=== PATIENT | male | born 1960 | race Caucasian/White ===

== ENCOUNTER → 2019-12-11 09:13 | Outpatient (CLI) | payer MEDICAID, SELFPAY | PROVIDERS: Visit Provider Emergency Medicine | DX: J44.9 Chronic obstructive pulmonary disease, unspecified (principal) | CPT/HCPCS: 87070; 87116; 87186; 87205; 87206 ==

== ENCOUNTER → 2019-12-12 09:07 | Outpatient (CLI) | payer MEDICAID, SELFPAY | PROVIDERS: Visit Provider Emergency Medicine | DX: J44.9 Chronic obstructive pulmonary disease, unspecified (principal) | CPT/HCPCS: 87070; 87116; 87186; 87205; 87206 ==

== ENCOUNTER → 2019-12-13 10:44 | Outpatient (CLI) | payer MEDICAID, SELFPAY | PROVIDERS: Visit Provider Emergency Medicine | DX: J44.9 Chronic obstructive pulmonary disease, unspecified (principal) | CPT/HCPCS: 87070; 87116; 87186; 87205; 87206 ==

== ENCOUNTER 2019-12-29 08:13 | Inpatient (IN) ==
[2019-12-29 08:39] LABS: ABG Base Excess 3.5 mmol/L (-2.4-2.3); ABG HCO3 27.8 mmhg (22.0-26.0); ABG Oxygen Saturation 92 % (90-100); ABG PCO2 42.6 mmhg (35.0-45.0); ABG PH 7.43 mmol/L (7.35-7.45); ABG PO2 60.1 mmhg (80-100); ABG TCO2 29.1 mmhg (23-27)
[2019-12-29 08:41] LABS: Allen's Test ACCEPTABLE; Oxygen 21 %
--- NOTE | 2019-12-29 08:42 | Emergency Department Note ---
ED Disposition Clinical Impression: Acute exacerbation of chronic obstructive airways disease, Severe sepsis, Respiratory distress, Hypoxemia, Acute kidney injury (nontraumatic) Altered mental status Qualifiers: Altered mental status type: unspecified Qualified Code(s): R41.82 - Altered mental status, unspecified Disposition: Admitted as Observation Condition on Discharge: Fair Referrals: Provider,Referral, MD [Primary Care Provider] - Time of Disposition: 11:23 - Critical Care Critical Care Time: Yes (30 min) Attestation: On 12/29/19, the high probability of a clinically significant, sudden or life threatening deterioration of the following system(s) required my full and direct attention, intervention and personal management. The time I documented below is in addition to time spent performing reported procedures but includes the following listed in this critical care notation. Bedside assessment, management, reevaluation, consult and admission. Vital system(s) involved:: Circulatory Failure, Respiratory Failure, Renal Failure, Shock (Septic) My critical care processes included: Assessment & monitoring of V/S, Initial and Re-exams, Data Review/Interpretation, Coordinating Care, Medication Orders and management, Documentation Medical Decision Making - Camacho Inquiry Pt receiving controlled substance: No Vital Signs: 12/29/19 08:28 12/29/19 08:37 12/29/19 08:47 Temperature 100 F H Temperature Source Rectal Pulse Rate [Left Radial] 104 H 104 H Respiratory Rate 42 H Blood Pressure [Right Arm] 153/97 H 103/42 L Blood Pressure Mean [Right Arm] 115 62 Blood Pressure Source [Right Arm] Blood Pressure Position [Right Arm] Sitting 02 Sat by Pulse Oximetry 89 L 92 L 92 L Oxygen Delivery Method Room Air Nasal Cannula Oxygen Flow Rate (LPM) 2 12/29/19 09:57 12/29/19 10:24 12/29/19 10:27 Temperature Temperature Source Pulse Rate [Left Radial] 91 H 85 84 Respiratory Rate Blood Pressure [Right Arm] 107/66 L 79/62 L 93/59 L Blood Pressure Mean [Right Arm] 79 67 70 Blood Pressure Source [Right Arm] Automatic Cuff Blood Pressure Position [Right Arm] Sitting Sitting 02 Sat by Pulse Oximetry 98 97 Oxygen Delivery Method Oxygen Flow Rate (LPM) 12/29/19 10:37 Temperature Temperature Source Pulse Rate [Left Radial] 86 Respiratory Rate Blood Pressure [Right Arm] 156/61 H Blood Pressure Mean [Right Arm] 92 Blood Pressure Source [Right Arm] Blood Pressure Position [Right Arm] 02 Sat by Pulse Oximetry 98 Oxygen Delivery Method Oxygen Flow Rate (LPM) - Lab Data Lab Results 12/29/19 08:21: WBC 10.9 H, RBC 5.03, Hgb 13.9 L, Hct 44.5, MCV 88.5, MCH 27.6, MCHC 31.1 L, RDW 16.7, Plt Count 192, MPV 10.0, Neut % (Auto) 83.3 H, Lymph % (Auto) 7.4 L, [place] % (Auto) 8.4, Eos % (Auto) 0.6, Baso % (Auto) 0.4, Neut # (Auto) 9.1 H, Lymph # (Auto) 0.8, [place] # (Auto) 0.9, Eos # (Auto) 0.1, Baso # (Auto) 0.0 12/29/19 08:21: B-Natriuretic Peptide 76 12/29/19 08:21: Lactate 1.6 12/29/19 08:21: Influenza Type A Ag Negative, Influenza Type B Ag Negative 12/29/19 08:36: Specimen Source Left radial, O2 % 21, ABG pH 7.43, ABG pCO2 42.6, ABG pO2 60.1 L, ABG HCO3 27.8 H, ABG Total CO2 29.1 H, ABG O2 Saturation 92, ABG Base Excess 3.5 H, Prasanth Test Acceptable 12/29/19 09:55: Sodium 139, Potassium 5.0, Chloride 101, Carbon Dioxide 31, Anion Gap 12.0, BUN 21 H, Creatinine 1.06, Estimated Creat Clear 89, Estimated GFR 72, Est GFR ( Amer) 87, Glucose 100, Calcium 9.4, Total Bilirubin 0.4, AST 19, ALT 9 L, Alkaline Phosphatase 70, Troponin I < 0.02, Total Protein 7.0, Albumin 2.7 L, Globulin 4.3 H, Albumin/Globulin Ratio 0.6 L, Total Valproic Acid 82.4 Result diagrams: 12/29/19 08:21 12/29/19 09:55 Orders (Tests/Meds): ED MEDICATIONS Generic Name Dose Route Start Last Admin Trade Name Freq PRN Reason Stop Dose Admin Sodium Chloride 1,000 mls @ 999 mls/hr 12/29/19 10:30 12/29/19 10:25 Sod Chlor 0.9% 1000ml Bag IV 12/29/19 11:30 999 mls/hr .Q1H1M SONYA Administration Azithromycin 500 mg/ Sodium 250 mls @ 250 mls/hr 12/29/19 11:30 Chloride IV 01/12/20 11:29 Q24H SONYA Protocol Sodium Chloride 3 ml 12/29/19 11:17 Sodium Chloride 3% 15ml Critical access hospital 01/28/20 11:16 ONCE PRN INDUCE SPUTUM COLLECTION Discontinued Medications Generic Name Dose Route Start Last Admin Trade Name Freq PRN Reason Stop Dose Admin Acetaminophen 650 mg 12/29/19 08:42 12/29/19 08:50 Acetaminophen 650mg Suppository RC 12/29/19 08:43 650 mg ONCE ONE Administration Albuterol Sulfate 10 mg 12/29/19 09:19 Albuterol 0.083% 2.5mg/3ml Critical access hospital 12/29/19 09:20 ONCE ONE Albuterol/Ipratropium 6 ml 12/29/19 08:40 12/29/19 08:40 Duoneb 3ml Critical access hospital 12/29/19 08:41 6 ml ONCE ONE Administration Ceftriaxone Sodium 1 gm/ 50 mls @ 100 mls/hr 12/29/19 08:40 12/29/19 08:50 Sodium Chloride IV 12/29/19 09:09 100 mls/hr ONCE STA Administration Protocol Methylprednisolone Sodium Succinate 125 mg 12/29/19 08:40 12/29/19 08:50 Solu-Medrol 125mg/2ml Vial IV 12/29/19 08:41 125 mg ONCE ONE Administration ORDERS Category Date Time Status CT Chest w/PE protocol [CT angio chest] Stat Cat Scan 12/29/19 10:52 Ordered Troponin I Q3H Lab 12/29/19 11:45 Ordered Troponin I Q3H Lab 12/29/19 14:45 Ordered Blood Culture Stat Micro 12/29/19 08:36 Ordered Sputum Culture & Gram Stain Stat Micro 12/29/19 11:17 Ordered - Radiology Data #1 Image(s): Chest Image Reviewed: Yes I reviewed the patient's radiology results XR CHEST AP from 11/10/2019 FINDINGS: The cardiomediastinal silhouette and pulmonary vascularity are within normal limits. COPD. There are 2 noncalcified nodular opacities in the right mid and lower lung zone which are not readily apparent on the previous exam. No lobar consolidation or collapse. Right shoulder prosthesis IMPRESSION: Two 5 mm nodular opacities right lower lung zone not readily apparent previously. No metastatic foci or granulomas is a consideration. Consider chest CT for further evaluation Dictated by: Prasanth Johnston MD 12/29/2019 09:30 Electronically signed by Prasanth Johnston MD in [place] 12/29/2019 09:30 - CT Data CT Scan: Head Time Received: 10:[address] Reviewed: Yes: I have reviewed the patient's CT results Findings Narrative: FINDINGS: No midline shift, mass effect, intracranial hemorrhage, hydrocephalus, or extra-axial fluid collection is evident. There is generalized atrophy with hypoattenuation of the periventricular white matter consistent with microangiopathic changes.. 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 The calvarium has an unremarkable appearance. No mastoid effusion. There is near complete opacification of the left maxillary sinus with lobular soft tissue density along the inferior aspect of the right maxillary sinus consistent with retention cyst. There is rightward nasal septal deviation with a septal spur projecting toward the right. IMPRESSION: 1. Atrophy with chronic ischemic changes. 2. Sinus disease. 3. No acute intracranial findings - ECG Data Tracing #1 EKG shows normal sinus rhythm with a heart rate of 104 bpm. Plan sinus tachycardia, normal P waves, normal OR interval, nonspecific ST-T changes. - Physician Consults Physician Consulted: Dr. Schmitt Time: 11:20 Reason -: Admission Comment/Response: With Dr. Schmitt, the patient's primary care provider regarding the patient and plan to get the patient admitted to the floor. - Reevaluation(s) Time: 10:30 Reevaluation #1: Patient's oxygen saturation has been improving with the Ventimask at 40%. He is satting at about 97 to 98%. He seems to be feeling better but still sounds very noisy on his cough. Has bilateral bronchospasm. Plan to discuss the case with the hospitalist and admit the patient for COPD with severe sepsis and acute dyspnea. Resp/SOB HPI - General Chief Complaint: Shortness of Breath/Dyspnea Stated Complaint: SOA Time Seen by Provider: 12/29/19 08:30 Mode of Arrival: EMS Limitations: No Limitations Description of Symptoms (Recalled from ER Triage Doc. by RN): TO ED PER EMS PT RESIDENT OF [facility] SENT FOR EVAL DUE TO RESP DISTRESS STARTING THIS AM. PT C/O SOB DENIES ANY OTHER C/O PT GIVEN 1 DUONEB [place] [employer] - History of Present Illness 59-year-old male was sent in from the residential for having shortness of b reath with cough and congestion. Patient is short of breath and is not able to verbalize any complaint. He is lethargic and keeps his eyes closed. He verbalizes only when to command. Does not verbalize much of his complaint. He says he is okay but he is acutely tachypneic. Does not verbalize if he is hurting anywhere. Sounds very noisy when he is breathing. He is breathing at about 26 to 30/min. MD Complaint: shortness of breath, cough - Related Data Home oxygen amount: none Home Medications Medication Instructions Recorded Confirmed Acetaminophen 500 mg PO Q6 PRN 11/10/19 12/29/19 Atorvastatin Calcium [Atorvastatin 40 mg PO HS 11/10/19 12/29/19 40mg Tab] Budesonide/Formoterol Fumarate 2 puffs IH BID 11/10/19 12/29/19 [Symbicort 160-4.5 Mcg Inhaler] Cholecalciferol (Vitamin D3) 1,000 unit PO DAILY 11/10/19 12/29/19 [Vitamin D3 1,000 Unit Cap] Divalproex Sodium [Depakote] 500 mg PO BID 11/10/19 12/29/19 Gabapentin [Gabapentin 100mg Cap] 100 mg PO TID 11/10/19 12/29/19 Loratadine [Claritin] 10 mg PO DAILY 11/10/19 12/29/19 Melatonin [Melatin] 6 mg PO HS 11/10/19 12/29/19 Propranolol HCl [Inderal 20mg 20 mg PO TID 11/10/19 12/29/19 Tablet] Quetiapine Fumarate [Seroquel 50 50 mg PO HS 11/10/19 12/29/19 mg Tablets] Sertraline HCl [Zoloft] 100 mg PO DAILY 11/10/19 12/29/19 buPROPion HCl [Bupropion Xl] 150 mg PO DAILY 11/10/19 12/29/19 raNITIdine HCl [Ranitidine HCl] 300 mg PO BID 11/10/19 12/29/19 Allergies Allergy/AdvReac Type Severity Reaction Status Date / Time bee pollen Allergy Verified 11/10/19 00:19 [facility] History - Hepatitis A Screen Drug use history?: No High risk sexual behaviors?: No History of sexually transmitted infection?: No Currently employed?: No Childcare worker?: No Do you have indoor plumbing?: Yes Do you have electricity?: Yes Attestation statement:: This patient has been screened for Hepatitis A risk factors. Medical History: Denies:: Diabetes Mellitus Type 1, Diabetes Mellitus Type 2 Fractures: Yes (HUMERUS, L RIBS, L RADIUS) - Social History Smoking Status: Current every day smoker Tobacco Type: cigarettes # Packs/Day (cigarettes): 0 Alcohol Intake: never Occupational Status: other Housing: assisted living facility Household Members: other ROS Obtained: Yes other (Does not verbalize muchcomplain.Unable to get a proper ROS d/t clinic state) Physical Exam - General General appearance: other (He is lethargic and keeps his eyes closed. He verbalizes only when to command. Does not verbalize much of his complaint. He says he is okay but he is acutely tachypneic. Does not verbalize if he is hurting anywhere.) - Head Head exam: atraumatic, normocephalic, normal inspection - Eye Eye exam: Present: normal appearance, PERRL, EOMI - ENT ENT exam: Present: normal exam, normal oropharynx, mucous membranes moist, normal external ear exam - Neck Neck exam: Present: normal inspection, full ROM - Chest Chest inspection: Present: normal inspection, symmetric chest wall rise - Respiratory Respiratory exam: Present: respiratory distress, wheezes, accessory muscle use, prolonged expiratory phase, other (coarse noisy breath sounds bilaterally. Bilateral bronchospasm.) - Cardiovascular Cardiovascular exam: Present: normal rhythm, tachycardia. Absent: JVD - Abdominal Exam Abdominal exam: Present: soft, normal bowel sounds. Absent: distention, tenderness, guarding - Extremities Exam Extremities exam: Present: normal inspection, full ROM, other (pale peripheral extremities.) - Back Exam Back exam: Present: normal inspection. Absent: tenderness - Neurological Exam Neurological exam: Present: alert, oriented X3, CN II-XII intact - Psychiatric Psychiatric exam: Present: normal affect, normal mood - Skin Skin exam: Present: warm, dry, intact, normal color
[2019-12-29 09:22] LABS: Basophils % 0.4 % (0.1-2.0); Eosinophils # 0.1 K/mm3 (0.0-0.4); Eosinophils % 0.6 % (0.1-12.0); Hematocrit 44.5 % (42.0-52.0); Hemoglobin 13.9 g/dL (14.1-18.0); Lymphocytes # 0.8 K/mm3 (0.7-4.5); Lymphocytes % 7.4 % (10-50); Mean Corpuscular HGB Conc 31.1 g/dL (31.8-35.4); Mean Corpuscular Volume 88.5 fl (80-94); Monocytes # 0.9 K/mm3 (0.1-1.0); Monocytes % 8.4 % (1.7-9.3); Neutrophils # 9.1 K/mm3 (1.8-7.8); Neutrophils % 83.3 % (37.0-80.0); Platelet Count 192 K/mm3 (142-424); Red Blood Count 5.03 M/mm3 (4.60-6.20); Red Cell Distribution Width 16.7 % (11.5-17.5); White Blood Count 10.9 K/mm3 (4.8-10.8)
[2019-12-29 10:22] LABS: Alanine Aminotransferase 9 U/L (12-78); Albumin Level 2.7 gm/dL (3.4-5.0); Albumin/Globulin Ratio 0.6 (1.1-1.8); Alkaline Phosphatase 70 U/L (46-116); Aspartate Amino Transferase 19 U/L (15-37); Bilirubin,Total 0.4 mg/dL (0.2-1.0); Blood Urea Nitrogen 21 mg/dL (7-18); Calcium 9.4 mg/dL (8.5-10.1); Carbon Dioxide 31 mmol/L (21.0-32.0); Chloride 101 mmol/L (98-107); Globulin 4.3 gm/dl (1.3-3.2); Glucose 100 mg/dL (74-106); Sodium 139 mmol/L (136-145)
--- NOTE | 2019-12-29 13:38 | Pharmacy Consult Notes ---
[facility] Pharmacy VTE Monitoring - Patient Demographics Admission date: 12/29/19 Report Date: 12/29/19 Time: 13:37 Allergies/Adverse Reactions: Patient Allergies bee pollen Allergy (Verified 11/10/19 00:19) Height: 1.83 m Weight: 75.296 kg Patient Problems: Current Active Problems Acute exacerbation of chronic obstructive airways disease (Acute) Severe sepsis (Acute) Respiratory distress (Acute) Hypoxemia (Acute) Altered mental status (Acute) Acute kidney injury (nontraumatic) (Acute) - VTE Risk Labs: VTE Related Lab Results Hgb 13.9 g/dL (14.1-18.0) L 12/29/19 08:21 Hct 44.5 % (42.0-52.0) 12/29/19 08:21 Plt Count 192 K/mm3 (142-424) 12/29/19 08:21 BUN 21 mg/dL (7-18) H 12/29/19 09:55 Creatinine 1.06 mg/dL (0.70-1.30) 12/29/19 09:55 Estimated Creat Clear 89 mL/min (50-200) 12/29/19 09:55 Was VTE Risk Assessment Performed: Yes VTE Score: 5 VTE Risk Level: Low Risk - Prophylaxis VTE Prophylaxis Ordered?: Yes Types of VTE Prophylaxis: TEDS Knee High Location of Applied Device: Bilateral Lower Extremeties - VTE Diagnosis Confirmed Treatment or plan recommended: Continue Current Treatment
--- NOTE | 2019-12-29 20:05 | History & Physical Report ---
*Admission Date: 12/29/19 *Chief complaint: sob *History of present illness: this pt was sent from [facility] for eval of change in mental status and sob - pt was seen in the ed--year-old male was sent in from the [place] [facility] for having shortness of breath with cough and congestion. Patient is short of breath and is not able to verbalize any complaint. He is lethargic and keeps his eyes closed. He verbalizes only when to command. Does not verbalize much of his complaint. He says he is okay but he is acutely tachypneic. Does not verbalize if he is hurting anywhere. Sounds very noisy when he is breathing. He is breathing at about 26 to 30/min. MD Complaint: shortness of breath, cough pt had hcap on ct and was admitted [facility] History I have reviewed the patient's past medical history: Yes Medical History: Denies:: Diabetes Mellitus Type 1, Diabetes Mellitus Type 2 *Have you ever received a pneumonia vaccine?: Yes *Have you received a flu vaccine this season?: Yes Laterality Cases: Left: Total Hip Replacement Fractures: Yes (HUMERUS, L RIBS, L RADIUS) - *Social History Smoking Status: Current every day smoker Tobacco Type: cigarettes # Packs/Day (cigarettes): 1 Alcohol Intake: never *Occupational Status:: disabled Housing: [facility] Household Members: other *Travel in the last 8 weeks: None Family Hx:: Unable to obtain Review of Systems - Review of Systems Review of systems:: pertinent systems reviewed and negative unless documented below - Constitutional Reports lack of energy - Eyes Denies change in vision - ENT Denies sore throat - *Cardiovascular Reports shortness of breath, Denies chest pain at rest - *Respiratory Reports cough, Denies coughing up blood - *Gastrointestinal Denies abdominal pain - *Genitourinary Denies blood in urine - *Musculoskeletal Denies joint pain - Integumentary/Breasts Denies rash - *Neurologic Denies seizure-like activity, Denies localized weakness, Denies headache(s) - Psychiatric Reports confusion Meds Home Medications Medication Instructions Recorded Confirmed Type Acetaminophen 1,000 mg PO Q6HP PRN 11/10/19 12/29/19 History Atorvastatin Calcium [Atorvastatin 40 mg PO HS 11/10/19 12/29/19 History 40mg Tab] Cholecalciferol (Vitamin D3) 1,000 unit PO DAILY 11/10/19 12/29/19 History [Vitamin D3 1,000 Unit Cap] Divalproex Sodium [Depakote] 500 mg PO TID 11/10/19 12/29/19 History Gabapentin [Gabapentin 100mg Cap] 100 mg PO TID 11/10/19 12/29/19 History Loratadine [Claritin] 10 mg PO DAILY 11/10/19 12/29/19 History Melatonin [Melatin] 6 mg PO HS 11/10/19 12/29/19 History Propranolol HCl [Inderal 20mg 20 mg PO TID 11/10/19 12/29/19 History Tablet] Quetiapine Fumarate [Seroquel 50 50 mg PO HS 11/10/19 12/29/19 History mg Tablets] Sertraline HCl [Zoloft] 100 mg PO DAILY 11/10/19 12/29/19 History raNITIdine HCl [Ranitidine HCl] 300 mg PO HS 11/10/19 12/29/19 History Fluticasone/Salmeterol [Advair 1 puff INHALATION BID 12/29/19 12/29/19 History 250/50mcg Diskus] buPROPion HCL [Wellbutrin 75mg 75 mg PO DAILY 12/29/19 12/29/19 History Tablet] Allergies Allergy/AdvReac Type Severity Reaction Status Date / Time bee pollen Allergy Verified 11/10/19 00:19 Exam Vital signs and Labs for Last 24 Hours: Temp Pulse Resp BP Pulse Ox 98.4 F 80 22 140/54 L 97 12/29/19 19:20 12/29/19 19:22 12/29/19 19:20 12/29/19 19:20 12/29/19 19:20 Laboratory Results - last 24 hr 12/29/19 08:21: WBC 10.9 H, RBC 5.03, Hgb 13.9 L, Hct 44.5, MCV 88.5, MCH 27.6, MCHC 31.1 L, RDW 16.7, Plt Count 192, MPV 10.0, Neut % (Auto) 83.3 H, Lymph % (Auto) 7.4 L, [place] % (Auto) 8.4, Eos % (Auto) 0.6, Baso % (Auto) 0.4, Neut # (A uto) 9.1 H, Lymph # (Auto) 0.8, [place] # (Auto) 0.9, Eos # (Auto) 0.1, Baso # (Auto) 0.0 12/29/19 08:21: B-Natriuretic Peptide 76 12/29/19 08:21: Lactate 1.6 12/29/19 08:21: Influenza Type A Ag Negative, Influenza Type B Ag Negative 12/29/19 08:36: Specimen Source Left radial, O2 % 21, ABG pH 7.43, ABG pCO2 42.6, ABG pO2 60.1 L, ABG HCO3 27.8 H, ABG Total CO2 29.1 H, ABG O2 Saturation 92, ABG Base Excess 3.5 H, Prasanth Test Acceptable 12/29/19 09:55: Sodium 139, Potassium 5.0, Chloride 101, Carbon Dioxide 31, Anion Gap 12.0, BUN 21 H, Creatinine 1.06, Estimated Creat Clear 89, Estimated GFR 72, Est GFR ( Amer) 87, Glucose 100, Calcium 9.4, Total Bilirubin 0.4, AST 19, ALT 9 L, Alkaline Phosphatase 70, Troponin I < 0.02, Total Protein 7.0, Albumin 2.7 L, Globulin 4.3 H, Albumin/Globulin Ratio 0.6 L, Total Valproic Acid 82.4 12/29/19 11:55: Troponin I < 0.02 12/29/19 15:10: Magnesium 1.8, Troponin I < 0.02 I & O for Last 24 hours: Intake & Output 12/27/19 12/28/19 12/29/19 12/30/19 11:59 11:59 11:59 11:59 Intake Total 906 / 906 Output Total 475 / 475 Balance 431 / 431 Weight 180 lb 166 lb - Constitutional no acute distress, chronically ill appearing - *Routine HEENT Exam Head: Present: normocephalic Eye: Present: EOMI, PERRL ENT: Present: mucous membranes dry - *Routine Neck Exam Absent: JVD - *Routine Respiratory Exam Present: decreased breath sounds - *Routine Cardiovascular Exam Present: RRR, murmur - *Routine Abdominal Exam Present: soft - *Routine Extremities Exam Absent: calf tenderness - *Routine Skin Exam Present: intact - *Routine Neurological Exam Present: alert, CN II-XII intact - Routine Psychiatric Exam Present: unable to assess Assessment and Plan (1) HCAP (healthcare-associated pneumonia) Current visit: Yes Status: Acute Category: Medical Code(s): J18.9 - Pneumonia, unspecified organism (2) Severe sepsis Current visit: Yes Status: Acute Category: Medical Code(s): A41.9 - Sepsis, unspecified organism; R65.20 - Severe sepsis without septic shock
[2019-12-30 06:35] LABS: Lymphocytes # 0.5 K/mm3 (0.7-4.5); Mean Platelet Volume 7.6 fl (7.4-10.4); Neutrophils # 7.7 K/mm3 (1.8-7.8)
[2019-12-30 06:40] LABS: Basophils % 0.3 % (0.1-2.0); Eosinophils % 0.1 % (0.1-12.0); Hematocrit 34.9 % (42.0-52.0); Mean Corpuscular HGB Conc 30.8 g/dL (31.8-35.4); Mean Corpuscular Volume 89.1 fl (80-94); Monocytes # 0.5 K/mm3 (0.1-1.0); Monocytes % 5.9 % (1.7-9.3); Neutrophils % 87.7 % (37.0-80.0); Platelet Count 151 K/mm3 (142-424); Red Blood Count 3.92 M/mm3 (4.60-6.20); Red Cell Distribution Width 16.7 % (11.5-17.5); White Blood Count 8.8 K/mm3 (4.8-10.8)
[2019-12-30 06:41] LABS: Anion Gap 11.4 mEq/L (5-15); Calcium 8.7 mg/dL (8.5-10.1)
[2019-12-30 06:42] LABS: Hemoglobin 10.8 g/dL (14.1-18.0)
[2019-12-30 07:57] LABS: Eosinophils % 1 % (0-3); Hypochromasia 1+; Lymphocytes % 8 % (10-50); Monocytes % 6 % (2-9); Neutrophils % 85 % (42-76); Total Cells Counted 100
--- NOTE | 2019-12-30 08:55 | Progress Note ---
Internal Medicine - PN: Subj *Date: 12/30/19 *Time: 08:52 Interval history: pt sitting up in bed. alert breathing has improved Exam Vital signs and Labs for Last 24 Hours: Temp Pulse Resp BP Pulse Ox 98.5 F 70 24 106/73 L 92 L 12/30/19 07:44 12/30/19 07:44 12/30/19 07:44 12/30/19 07:44 12/30/19 07:44 Laboratory Results - last 24 hr 12/29/19 08:21: WBC 10.9 H, RBC 5.03, Hgb 13.9 L, Hct 44.5, MCV 88.5, MCH 27.6, MCHC 31.1 L, RDW 16.7, Plt Count 192, MPV 10.0, Neut % (Auto) 83.3 H, Lymph % (Auto) 7.4 L, [place] % (Auto) 8.4, Eos % (Auto) 0.6, Baso % (Auto) 0.4, Neut # (Auto) 9.1 H, Lymph # (Auto) 0.8, [place] # (Auto) 0.9, Eos # (Auto) 0.1, Baso # (Auto) 0.0 12/29/19 08:21: B-Natriuretic Peptide 76 12/29/19 08:21: Lactate 1.6 12/29/19 08:21: Influenza Type A Ag Negative, Influenza Type B Ag Negative 12/29/19 09:55: Sodium 139, Potassium 5.0, Chloride 101, Carbon Dioxide 31, Anion Gap 12.0, BUN 21 H, Creatinine 1.06, Estimated Creat Clear 89, Estimated GFR 72, Est GFR ( Amer) 87, Glucose 100, Calcium 9.4, Total Bilirubin 0.4, AST 19, ALT 9 L, Alkaline Phosphatase 70, Troponin I < 0.02, Total Protein 7.0, Albumin 2.7 L, Globulin 4.3 H, Albumin/Globulin Ratio 0.6 L, Total Valproic Acid 82.4 12/29/19 11:55: Troponin I < 0.02 12/29/19 15:10: Magnesium 1.8, Troponin I < 0.02 12/29/19 20:25: Troponin I < 0.02 12/30/19 06:15: WBC 8.8, RBC 3.92 L, Hgb 10.8 L D, Hct 34.9 L, MCV 89.1, MCH 27.5, MCHC 30.8 L, RDW 16.7, Plt Count 151, MPV 7.6, Neut % (Auto) 87.7 H, Lymph % (Auto) 6.0 L, [place] % (Auto) 5.9, Eos % (Auto) 0.1, Baso % (Auto) 0.3, Neut # (Auto) 7.7, Lymph # (Auto) 0.5 L, [place] # (Auto) 0.5, Eos # (Auto) 0.0, Baso # (Auto) 0.0, Total Counted 100, Neutrophils % (Manual) 85 H, Lymphocytes % (Manual) 8 L, Monocytes % (Manual) 6, Eosinophils % (Manual) 1, Platelet Estimate Slight decrease, Hypochromasia 1+ 12/30/19 06:15: Sodium 140, Potassium 4.4, Chloride 104, Carbon Dioxide 29, Anion Gap 11.4, BUN 0 L D, Creatinine 1.10, Estimated Creat Clear 84, Estimated GFR 69, Est GFR ( Amer) 83, Glucose 108 H, Calcium 8.7 I & O for Last 24 hours: Intake & Output 12/27/19 12/28/19 12/29/19 12/30/19 11:59 11:59 11:59 11:59 Intake Total 2643 / 2643 Output Total 475 / 475 Balance 2168 / 2168 Weight 180 lb 176 lb 4 oz - Constitutional no acute distress, chronically ill appearing - *Routine HEENT Exam Head: Present: normocephalic Eye: Present: PERRL ENT: Present: mucous membranes moist - *Routine Neck Exam Present: supple. Absent: lymphadenopathy - *Routine Respiratory Exam Present: decreased breath sounds, rhonchi, wheezes - *Routine Cardiovascular Exam Present: RRR - *Routine Abdominal Exam Present: soft, normoactive bowel sounds. Absent: tenderness - *Routine Extremities Exam Present: full ROM. Absent: cyanosis, clubbing, edema - *Routine Skin Exam Present: warm. Absent: rash - *Routine Neurological Exam Present: alert, oriented X3 - Routine Psychiatric Exam Present: normal affect Assessment and Plan (1) HCAP (healthcare-associated pneumonia) Current visit: Yes Status: Acute Category: Medical Code(s): J18.9 - Pneumonia, unspecified organism treated with leviquin,zoysn sputum pending (2) Respiratory distress Current visit: Yes Status: Acute Category: Medical Code(s): R06.03 - Acute respiratory distress wean o2 - Assessment and plan all Dx Assessment and Plan for all problems:: rounded with angelica all orders per angelica pt/ot wean o2
--- NOTE | 2019-12-30 13:53 | Electrocardiograph Report ---
APPROVED REPORT Exam: Resting ECG HR:105 bpm ECG Measurements Heart Rate 105 AXES [place] 196 P 68 QRSd 72 QRS -36 QT 308 T64 QTc 407 <Conclusion> Sinus tachycardia Left axis deviation Abnormal ECG Electronically signed by : Arian Sorto, 12/30/2019 13:52:31
[2019-12-31 08:28] LABS: Basophils % 0.3 % (0.1-2.0); Eosinophils # 0.1 K/mm3 (0.0-0.4); Eosinophils % 0.6 % (0.1-12.0); Hematocrit 38.7 % (42.0-52.0); Hemoglobin 11.9 g/dL (14.1-18.0); Lymphocytes # 0.7 K/mm3 (0.7-4.5); Lymphocytes % 6.4 % (10-50); Mean Corpuscular HGB Conc 30.8 g/dL (31.8-35.4); Mean Corpuscular Volume 90.2 fl (80-94); Mean Platelet Volume 8.5 fl (7.4-10.4); Monocytes # 0.6 K/mm3 (0.1-1.0); Monocytes % 5.6 % (1.7-9.3); Neutrophils # 9.4 K/mm3 (1.8-7.8); Platelet Count 164 K/mm3 (142-424); Red Blood Count 4.29 M/mm3 (4.60-6.20); Red Cell Distribution Width 16.8 % (11.5-17.5); White Blood Count 10.9 K/mm3 (4.8-10.8)
[2019-12-31 08:45] LABS: Anion Gap 10.9 mEq/L (5-15); Calcium 8.5 mg/dL (8.5-10.1)
--- NOTE | 2019-12-31 08:46 | Discharge Summary ---
General - General Admission date:: 12/29/19 Discharge date: 12/31/19 HPI HPI: 59-year-old male patient sitting up in bed eating breakfast. More alert today. We will discharge back to [facility] today, discussed with patient he is agreeable to this this pt was sent from [facility] for eval of change in mental status and sob - pt was seen in the ed--year-old male was sent in from the long-term for having shortness of breath with cough and congestion. Patient is short of breath and is not able to verbalize any complaint. He is lethargic and keeps his eyes closed. He verbalizes only when to command. Does not verbalize much of his complaint. He says he is okay but he is acutely tachypneic. Does not verbalize if he is hurting anywhere. Sounds very noisy when he is breathing. He is breathing at about 26 to 30/min. MD Complaint: shortness of breath, cough pt had hcap on ct and was admitted Hospital Course Hospital Course: On hospital oxygen requirements have decreased he has received IV levofloxacin and and Zosyn. He reports he is feeling better, he is also more alert. He will be discharged back to [facility] today this pt was sent from [facility] for eval of change in mental status and sob - pt was seen in the ed--year-old male was sent in from the long-term for having shortness of breath with cough and congestion. Patient is short of breath and is not able to verbalize any complaint. He is lethargic and keeps his eyes closed. He verbalizes only when to command. Does not verbalize much of his complaint. He says he is okay but he is acutely tachypneic. Does not verbalize if he is hurting anywhere. Sounds very noisy when he is breathing. He is breathing at about 26 to 30/min. MD Complaint: shortness of breath, cough pt had hcap on ct and was admitted 12/29/2019 CXR: IMPRESSION: Two 5 mm nodular opacities right lower lung zone not readily apparent previously. No metastatic foci or granulomas is a consideration. Consider chest CT for further evaluation Dictated by: Dr. oJhnston, 12/29/2019 Chest CTA: IMPRESSION: 1. Limited exam secondary to motion artifact. 2. There are patchy areas of tree in bud pattern in the right lower lobe and left lower lobe consistent with areas of pneumonia. In the left lower lobe there is a 1.9 cm nodular opacity which could be part of the pneumonia or could be a separate pulmonary nodule. Suggest follow-up following adequate treatment for pneumonia to see if this persists. Atelectatic changes are present in the lung bases. 3. No evidence of pulmonary embolus Dictated by: Dr. Johnston, Objective Vital signs: Temp Pulse Resp BP Pulse Ox 98.1 F 55 L 22 111/69 93 L 12/31/19 08:00 12/31/19 08:00 12/31/19 08:00 12/31/19 08:00 12/31/19 08:00 no acute distress - *Routine HEENT Exam Head: Present: normocephalic, atraumatic. Absent: tenderness of temporal artery Eye: Present: EOMI, PERRL, normal accommodation. Absent: scleral injection ENT: Present: mucous membranes moist. Absent: sinus tenderness - *Routine Respiratory Exam Present: decreased breath sounds, wheezes. Absent: accessory muscle use - *Routine Cardiovascular Exam Present: RRR, murmur - *Routine Abdominal Exam Present: soft, normoactive bowel sounds. Absent: tenderness, firm - *Routine Extremities Exam Present: full ROM, pulses intact. Absent: cyanosis, calf tenderness - Routine Back/Spine/Pelvis Exam Back/Spine: Present: full ROM. Absent: CVA tenderness - *Routine Skin Exam Present: intact, warm. Absent: cyanosis, erythema - *Routine Neurological Exam Present: alert, oriented X3, CN II-XII intact. Absent: fasciculations - Routine Psychiatric Exam Present: normal affect, normal thought process. Absent: suicidal ideation, homicidal ideation Results Labs on day of discharge: Labs from last 24 hours 12/31/19 08:15 WBC 10.9 H RBC 4.29 L Hgb 11.9 L Hct 38.7 L MCV 90.2 MCH 27.8 MCHC 30.8 L RDW 16.8 Plt Count 164 MPV 8.5 Neut % (Auto) 87.0 H Lymph % (Auto) 6.4 L [place] % (Auto) 5.6 Eos % (Auto) 0.6 Baso % (Auto) 0.3 Neut # (Auto) 9.4 H Lymph # (Auto) 0.7 [place] # (Auto) 0.6 Eos # (Auto) 0.1 Baso # (Auto) 0.0 - Additional Comments Per Dr. Schmitt, all orders per Dr. Schmitt 1. We will discharge back to [facility] today 2. Levaquin 750 p.o. x7 days DS: Diagnosis - Discharge Diagnosis (1) HCAP (healthcare-associated pneumonia) Status: Acute (2) Severe sepsis Status: Acute Discharge Plan - Patient Discharge Instructions ACTIVITY: Continue current activity DIET: continue same diet Patient Instructions: DI for Chronic Obstructive Pulmonary Disease, DI for Pne umonia -- Adult, DI for Sepsis -- Adult, DI for Altered Mental Status, DI for Hypoxia - Follow up Plan Follow up with: Saskia Wallace APRN [Advanced Practice Nurse] - Disposition: [facility] Home Medications: Home Medications Medication Instructions Recorded Confirmed Type Acetaminophen 1,000 mg PO Q6HP PRN 11/10/19 12/29/19 History Atorvastatin Calcium [Atorvastatin 40 mg PO HS 11/10/19 12/29/19 History 40mg Tab] Cholecalciferol (Vitamin D3) 1,000 unit PO DAILY 11/10/19 12/29/19 History [Vitamin D3 1,000 Unit Cap] Divalproex Sodium [Depakote] 500 mg PO TID 11/10/19 12/29/19 History Gabapentin [Gabapentin 100mg Cap] 100 mg PO TID 11/10/19 12/29/19 History Loratadine [Claritin] 10 mg PO DAILY 11/10/19 12/29/19 History Melatonin [Melatin] 6 mg PO HS 11/10/19 12/29/19 History Propranolol HCl [Inderal 20mg 20 mg PO TID 11/10/19 12/29/19 History Tablet] Quetiapine Fumarate [Seroquel 50 50 mg PO HS 11/10/19 12/29/19 History mg Tablets] Sertraline HCl [Zoloft] 100 mg PO DAILY 11/10/19 12/29/19 History raNITIdine HCl [Ranitidine HCl] 300 mg PO HS 11/10/19 12/29/19 History Fluticasone/Salmeterol [Advair 1 puff INHALATION BID 12/29/19 12/29/19 History 250/50mcg Diskus] buPROPion HCL [Wellbutrin 75mg 75 mg PO DAILY 12/29/19 12/29/19 History Tablet] Prescriptions/Medication Reconciliation: Continued Quetiapine Fumarate [Seroquel 50 mg Tablets] 50 mg PO HS Atorvastatin Calcium [Atorvastatin 40mg Tab] 40 mg PO HS Sertraline HCl [Zoloft] 100 mg PO DAILY raNITIdine HCl [Ranitidine HCl] 300 mg PO HS Melatonin [Melatin] 6 mg PO HS Loratadine [Claritin] 10 mg PO DAILY Gabapentin [Gabapentin 100mg Cap] 100 mg PO TID Divalproex Sodium [Depakote] 500 mg PO TID Acetaminophen 1,000 mg PO Q6HP PRN PRN Reason: As Needed For Fever Or Pain buPROPion HCL [Wellbutrin 75mg Tablet] 75 mg PO DAILY Cholecalciferol (Vitamin D3) [Vitamin D3 1,000 Unit Cap] 1,000 unit PO DAILY Propranolol HCl [Inderal 20mg Tablet] 20 mg PO TID Fluticasone/Salmeterol [Advair 250/50mcg Diskus] 1 puff INHALATION BID - Problem Reconciliation Problems Reviewed?: Yes
[2019-12-31 09:56] LABS: Hypochromasia 1+; Lymphocytes % 6 % (10-50); Monocytes % 9 % (2-9); Neutrophils % 85 % (42-76); Total Cells Counted 100
== END 2019-12-31 13:12 | DRG 193 ==
LOC: 2ND 08:13 → ER 08:13 → OBSVTOIN 12:32 → 2ND 12:33
PROVIDERS: ADMIT Emergency Medicine; ATTEND Emergency Medicine
CPT/HCPCS: 36415; 70450; 71010; 71045; 71275; 80048; 80053; 80164; 82803; 83605; 83735; 83880; 84484; 85007; 85025; 87040; 87275; 87276; 93005; 94640; 94761; 96365; 96367; 96375; 97110; 97161; 97166; 97530; 99285; J0456; J1956; J2543; Q9967

== ENCOUNTER → 2020-01-14 13:12 | Outpatient (CLI) | payer MEDICAID, SELFPAY ==
--- NOTE | 2020-01-14 13:19 | CT_ITS ---
PROCEDURE: CT CHEST WO CON CLINICAL INDICATION: PULMONARY NODULES COMPARISON: CT ANGIO CHEST from 12/29/2019 TECHNIQUE: Axial images obtained with sagittal and coronal reformats. All CT scans at the facility use one or more dose reduction, viz: automated exposure control, ma/kV adjustment per patient size (including targeted exams where dose is matched to indication, i.e. head), or iterative reconstruction technique. FINDINGS: HEART AND MEDIASTINAL STRUCTURES: There is coronary arterial calcification. LUNGS AND PLEURAL SPACES: There is COPD. There has been an interval increase in parenchymal densities in the right lower lobe. An area of dense consolidation of the posterior medial right lower lobe 1.9 x 4.6 centimeters is now noted and other infiltrates in the right lower lobe have increased over the interval. There are continued infiltrates in the left lower lobe. Some decrease in the mass like consolidation of left lower lobe noted previously has occurred. Some new infiltrate is seen posterior to the left hilum in the left lower lobe. Parenchymal densities in the lung apices some of which appear calcified are again noted and not definitely changed over the short interval. Calcified mediastinal and bilateral hilar lymph nodes are noted. BONY STRUCTURES: No acute bony abnormalities apparent. UPPER ABDOMEN: Postsurgical changes with right nephrectomy is noted. 3 millimeter calcification in the upper pole of the left kidney is likely a nonobstructing stone. There is some nonspecific wall thickening of nondistended hepatic flexure. ADDITIONAL FINDINGS: No other significant abnormalities. IMPRESSION: Increase in infiltrates in the right lower lobe. Some slight decrease in the mass like consolidation in left lower lobe. New infiltrate in the retro hilar left lower lobe. Continued nodule like opacities in both lung diaz. Follow-up of this patient will be necessary in attempt to confirm complete clearing and ensure benign etiology. Dictated by: Konrad Marx 01/14/2020 14:24 Electronically signed by Konrad Marx in [place] 01/14/2020 14:24
== END ==
PROVIDERS: PCP Emergency Medicine; Referring Provider Internal Medicine Sleep Medicine; Visit Provider Emergency Medicine
DX: R91.8 Other nonspecific abnormal finding of lung field (principal)
CPT/HCPCS: 71250

== ENCOUNTER → 2020-01-16 18:04 | Outpatient (CLI) | payer MEDICAID, SELFPAY ==
[2020-01-16 18:11] LABS: Adenovirus F 40/41, stool Not Detected (NotDetected); Astrovirus Not Detected (NotDetected); Campylobacter Not Detected (NotDetected); Cryptosporidium Not Detected (NotDetected); Cyclospora Cayetanesis Not Detected (NotDetected); Entamoeba histolytica Not Detected (NotDetected); Enteroaggregative E coli Not Detected (NotDetected); Enteropathogenic E coli Not Detected (NotDetected); Enterotoxigenic E coli Not Detected (NotDetected); Giardia lamblia Not Detected (NotDetected); Norovirus Not Detected (NotDetected); Plesimonas Shigalloides, PCR Not Detected (NotDetected); Rotavirus A Not Detected (NotDetected); Salmonella, PCR Not Detected (NotDetected); Sapovirus Not Detected (NotDetected); Shiga-like toxin E coli Not Detected (NotDetected); Shigella Enterovasive E coli Not Detected (NotDetected); Vibrio Cholerae Not Detected (NotDetected); Vibrio, PCR Not Detected (NotDetected); Yersinia Entercolitica, PCR Not Detected (NotDetected)
[2020-01-16 19:31] LABS: Occult Blood,Stool Negative (Negative)
[2020-01-16 23:19] LABS: Clostridium Difficile A/B, PCR Detected (NotDetected)
== END ==
PROVIDERS: PCP Emergency Medicine; Visit Provider Emergency Medicine
DX: A04.0 Enteropathogenic Escherichia coli infection (principal)
CPT/HCPCS: 82272; 87507; G0328

== ENCOUNTER 2020-01-17 21:39 | Inpatient (IN) ==
[2020-01-17 21:56] LABS: ABG HCO3 25.1 mmhg (22.0-26.0); ABG Oxygen Saturation 88 % (90-100); ABG PCO2 37.6 mmhg (35.0-45.0); ABG PH 7.44 mmol/L (7.35-7.45); ABG PO2 55.1 mmhg (80-100); ABG TCO2 26.2 mmhg (23-27)
[2020-01-17 21:58] LABS: Allen's Test Acceptable; Oxygen 3L %
[2020-01-17 22:04] LABS: Basophils # 0.1 K/mm3 (0-0.2); Basophils % 0.4 % (0.1-2.0); Eosinophils # 0.1 K/mm3 (0.0-0.4); Eosinophils % 0.3 % (0.1-12.0); Hemoglobin 11.8 g/dL (14.1-18.0); Lymphocytes # 0.9 K/mm3 (0.7-4.5); Lymphocytes % 5.5 % (10-50); Mean Corpuscular HGB Conc 31.1 g/dL (31.8-35.4); Mean Corpuscular Volume 88.2 fl (80-94); Mean Platelet Volume 9.5 fl (7.4-10.4); Monocytes # 1.5 K/mm3 (0.1-1.0); Monocytes % 9.2 % (1.7-9.3); Neutrophils # 13.9 K/mm3 (1.8-7.8); Neutrophils % 84.6 % (37.0-80.0); Platelet Count 172 K/mm3 (142-424); Red Blood Count 4.31 M/mm3 (4.60-6.20); Red Cell Distribution Width 17.1 % (11.5-17.5); White Blood Count 16.4 K/mm3 (4.8-10.8)
[2020-01-17 22:06] LABS: Calcium 9.1 mg/dl (8.4-10.2)
--- NOTE | 2020-01-17 22:09 | Emergency Department Note ---
ED Disposition Clinical Impression: BROCK (acute kidney injury), HCAP (healthcare-associated pneumonia), Obesity (BMI 30.0-34.9), Hypokalemia Leukocytosis Qualifiers: Leukocytosis type: bandemia Qualified Code(s): D72.825 - Bandemia Disposition: Admitted as Observation Condition on Discharge: Fair - Critical Care Critical Care Time: No Attestation: On 01/17/20, the high probability of a clinically significant, sudden or life threatening deterioration of the following system(s) required my full and direct attention, intervention and personal management. The time I documented below is in addition to time spent performing reported procedures but includes the following listed in this critical care notation. Medical Decision Making - Medical Records Medical records reviewed: Yes: I reviewed the patient's medical records. - Camacho Inquiry Pt receiving controlled substance: No Vital Signs: 01/17/20 21:39 01/17/20 22:07 Temperature 100.1 F H Temperature Source Rectal Pulse Rate 84 Pulse Rate [Left Radial] 86 Respiratory Rate 18 Blood Pressure [Right Arm] 91/48 L Blood Pressure Mean [Right Arm] 62 Blood Pressure Source [Right Arm] Automatic Cuff Blood Pressure Position [Right Arm] Sitting 02 Sat by Pulse Oximetry 86 L Oxygen Delivery Method Nasal Cannula Oxygen Flow Rate (LPM) 2 - Lab Data Lab results reviewed: Yes: I reviewed the patient's lab results. Lab Results 01/17/20 21:40: Troponin I < 0.01 01/17/20 21:40: WBC 16.4 H, RBC 4.31 L, Hgb 11.8 L, Hct 38.0 L, MCV 88.2, MCH 27.4, MCHC 31.1 L, RDW 17.1, Plt Count 172, MPV 9.5, Neut % (Auto) 84.6 H, Lymph % (Auto) 5.5 L, [place] % (Auto) 9.2, Eos % (Auto) 0.3, Baso % (Auto) 0.4, Neut # (Auto) 13.9 H, Lymph # (Auto) 0.9, [place] # (Auto) 1.5 H, Eos # (Auto) 0.1, Baso # (Auto) 0.1, Total Counted 100, Neutrophils % (Manual) 74, Band Neutrophils % 17.0 H, Lymphocytes % (Manual) 9 L, Platelet Estimate Normal, Hypochromasia 1+, Anisocytosis 1+ 01/17/20 21:40: Sodium 144, Potassium 3.0 L, Chloride 100, Carbon Dioxide 30, Anion Gap 17.0 H, BUN 47 H, Creatinine 2.50 H, Estimated Creat Clear 48, Estimated GFR 27 L, Est GFR ( Amer) 32 L, Glucose 100, Calcium 9.1 01/17/20 21:40: Lactate 1.9 01/17/20 21:52: Specimen Source Right radial, O2 % 3l, ABG pH 7.44, ABG pCO2 37.6, ABG pO2 55.1 L, ABG HCO3 25.1, ABG Total CO2 26.2, ABG O2 Saturation 88 L, ABG Base Excess 1.0, Prasanth Test Acceptable 01/17/20 22:08: Urine Color Yellow, Urine Appearance Clear, Urine pH 6.0, Ur Specific [place] 1.020, Urine Protein Trace, Urine Glucose (UA) Negative, Urine Ketones Negative, Urine Blood Negative, Urine Nitrate Negative, Urine Bilirubin Negative, Urine Urobilinogen 0.2, Ur Leukocyte Esterase Negative, Urine WBC Occasional, Ur Squamous Epith Cells Occasional Result diagrams: 01/17/20 21:40 01/17/20 21:40 Orders (Tests/Meds): ED MEDICATIONS Generic Name Dose Route Start Last Admin Trade Name Freq PRN Reason Stop Dose Admin Sodium Chloride 1,000 mls @ 999 mls/hr 01/17/20 22:00 01/17/20 22:18 Sod Chlor 0.9% 1000ml Bag IV 01/17/20 23:00 999 mls/hr .Q1H1M SONYA Administration Cefepime HCl 1 gm/ Sodium 50 mls @ 100 mls/hr 01/17/20 23:15 Chloride IV 01/31/20 23:14 Q12H SONYA Protocol Clindamycin Phosphate 900 mg/ 106 mls @ 100 mls/hr 01/17/20 23:15 01/17/20 23:22 Sodium Chloride IV 01/31/20 23:14 100 mls/hr Q8H SONYA Administration Protocol Discontinued Medications Generic Name Dose Route Start Last Admin Trade Name Freq PRN Reason Stop Dose Admin Albuterol/Ipratropium 3 ml 01/17/20 22:07 01/17/20 22:13 Duoneb 3ml Neb IH 01/17/20 22:08 3 ml ONCE ONE Administration Methylprednisolone Sodium Succinate 125 mg 01/17/20 21:53 01/17/20 22:18 Solu-Medrol 125mg/2ml Vial IV 01/17/20 21:54 125 mg ONCE ONE Administration ORDERS Category Date Time Status XR chest portable Stat Exams 01/17/20 21:52 Taken Troponin I Q3H Lab 01/18/20 01:00 Ordered Troponin I Q3H Lab 01/18/20 04:00 Ordered Blood Culture Stat Micro 01/17/20 21:40 Received Arterial Blood Gas Stat RT 01/17/20 21:51 Ordered - Radiology Data #1 Image(s): Chest Image Reviewed: Yes I reviewed the patient's radiology image Preliminary Findings: Abnormal (sl changes bilat ) - ECG Data Tracing #1 Normal Sinus Rhythm: Yes Ischemic changes: non-specific ST-T wave changes Resp/SOB HPI - General Chief Complaint: Shortness of Breath/Dyspnea Stated Complaint: RESPIRATORY DISTRESS Time Seen by Provider: 01/17/20 21:40 Mode of Arrival: EMS Source of Information: Patient, EMS, Medical Record Limitations: Altered Mental Status Description of Symptoms (Recalled from ER Triage Doc. by RN): PT WAS SENT FROM [facility] WITH RESPIRATORY DISTRESS. PER STAFF PT HAS A KNOWN DIAGNOSIS OF PNEUMONIA. STAFF STATED THEY HAD THE PT ON 2L NC AND COULDNT GET THE PTS OXYGEN SATURATION ABOVE LOW 80s THEY ALSO STATED THAT THE PT WAS BECOMING INCREASINGLY HYPOTENSIVE. - History of Present Illness sent from [facility] with dec o2 sat and change in mental status - he has been treated for resp illness at [facility] - he has dec po intake but no vomiting or diarrhea - he was admitted in early 01/16 for hcap - no chest pain MD Complaint: shortness of breath Onset (ago): day(s) Context: recent illness Severity: moderate Associated symptoms: denies other symptoms Treatment prior to arrival: oxygen, bronchodilator - Related Data Home oxygen amount: 2 liters Home Medications Medication Instructions Recorded Confirmed Acetaminophen 1,000 mg PO Q6HP PRN 11/10/19 01/17/20 Atorvastatin Calcium [Atorvastatin 40 mg PO HS 11/10/19 01/17/20 40mg Tab] Cholecalciferol (Vitamin D3) 1,000 unit PO DAILY 11/10/19 01/17/20 [Vitamin D3 1,000 Unit Cap] Divalproex Sodium [Depakote] 500 mg PO TID 11/10/19 01/17/20 Gabapentin [Gabapentin 100mg Cap] 100 mg PO TID 11/10/19 01/17/20 Loratadine [Claritin] 10 mg PO DAILY 11/10/19 01/17/20 Melatonin [Melatin] 6 mg PO HS 11/10/19 01/17/20 Propranolol HCl [Inderal 20mg 20 mg PO TID 11/10/19 01/17/20 tablet] Quetiapine Fumarate [Seroquel 50 50 mg PO BID 11/10/19 01/17/20 mg Tablets] Sertraline HCl [Zoloft] 100 mg PO DAILY 11/10/19 01/17/20 raNITIdine HCL [Ranitidine HCl] 300 mg PO HS 11/10/19 01/17/20 buPROPion HCL [Wellbutrin 75mg 75 mg PO DAILY 12/29/19 01/17/20 Tablet] Fluticasone/Salmeterol [Advair 1 inh IH BID 01/17/20 01/17/20 250/50mcg Diskus] levoFLOXacin [Levaquin 500mg 500 mg PO DAILY 01/17/20 01/17/20 tab] Allergies Allergy/AdvReac Type Severity Reaction Status Date / Time bee pollen Allergy Verified 01/17/20 21:51 - Well's Criteria PE Score Clinical signs/symptoms of DVT: No PE is #1 diagnosis or equally likely: No Heart rate is > 100: No Immobile at least 3 days, or surgery in past 4 wks: Yes Previously, obj. diagnosed PE or DVT: No Hemoptysis: No Malignancy w/Rx within 6mo, or palliative: No PE Score: 1 [facility] History - Hepatitis A Screen Drug use history?: No High risk sexual behaviors?: No History of sexually transmitted infection?: No Currently employed?: No Childcare worker?: No Do you have indoor plumbing?: Yes Do you have electricity?: Yes Attestation statement:: This patient has been screened for Hepatitis A risk factors. I have reviewed the patient's past medical history: Yes Medical History: Denies:: Diabetes Mellitus Type 1, Diabetes Mellitus Type 2 Laterality Cases: Left: Total Hip Replacement Fractures: Yes (HUMERUS, L RIBS, L RADIUS) - Social History Smoking Status: Current every day smoker Tobacco Type: cigarettes # Packs/Day (cigarettes): 1 Alcohol Intake: never Occupational Status: disabled Housing: custodial Household Members: other Family Hx:: Unable to obtain ROS Obtained: Yes All systems reviewed & no additional complaints, Yes unobtainable due to mental status Physical Exam - General General appearance: lethargic, obese - Head Head exam: atraumatic - Eye Eye exam: Present: PERRL, EOMI. Absent: scleral icterus, nystagmus - ENT ENT exam: Present: mucous membranes dry - Neck Neck exam: Present: full ROM, trachea midline - Respiratory Respiratory exam: Present: other (dec bs bilat). Absent: respiratory distress - Cardiovascular Cardiovascular exam: Present: regular rate, systolic murmur, +S4 - Abdominal Exam Abdominal exam: Present: soft - Extremities Exam Extremities exam: Present: pedal edema. Absent: calf tenderness - Neurological Exam Neurological exam: Present: CN II-XII intact, other (no posturing ) - Skin Skin exam: Absent: rash
[2020-01-17 22:14] LABS: Microscopic, Urine URINE MICROSCOPIC (MICROSCOPIC)
[2020-01-17 22:18] LABS: Appearance,Urine CLEAR (Clear); Bilirubin,Urine Negative (Negative); Blood, Urine Negative (Negative); Color,Urine YELLOW (Yellow); Glucose,Urine (UA) Negative (Negative); Ketones,Urine Negative (Negative); Leukocyte Esterase,Urine Negative (Negative); Protein,Urine TRACE (Negative); Urobilinogen,Urine 0.2 EU/dl (0.2)
[2020-01-17 22:28] LABS: Squamous Epithelial Cell,Urine Occasional #/hpf (0-5); WBC,Urine Occasional #/hpf (0-3)
[2020-01-17 22:29] LABS: Lymphocytes % 9 % (10-50); Neutrophils % 74 % (42-76); Total Cells Counted 100
[2020-01-17 22:30] LABS: Anisocytosis 1+; Hypochromasia 1+
[2020-01-18 03:40] LABS: ABG Base Excess -3.6 mmol/L (-2.4-2.3); ABG Oxygen Saturation 98 % (90-100); ABG PCO2 49.7 mmhg (35.0-45.0); ABG PH 7.28 mmol/L (7.35-7.45); ABG PO2 118.1 mmhg (80-100); ABG TCO2 24.6 mmhg (23-27)
[2020-01-18 03:41] LABS: Allen's Test Non Applicable; Oxygen 100% %
--- NOTE | 2020-01-18 03:48 | Progress Note ---
Acute Rapid Response Note - Subjective Date Responded: 01/18/20 Time Responded: 02:55 - Objective Findings: Vital Signs - Last 4 Hours Temperature 97.8 F 01/18/20 00:23 Temperature Source Rectal 01/18/20 00:23 Pulse Rate 70 01/18/20 00:44 Respiratory Rate 16 01/18/20 00:23 Blood Pressure 102/58 L 01/18/20 00:23 Blood Pressure Mean 72 01/18/20 00:23 Blood Pressure Source Automatic Cuff 01/18/20 00:23 Blood Pressure Position Supine 01/18/20 00:23 02 Sat by Pulse Oximetry 93 L 01/18/20 00:23 Oxygen Delivery Method 01/18/20 01:00 Oxygen Flow Rate (LPM) 3 01/18/20 01:00 Lab Results for Past 12 Hours 01/18/20 03:36: Specimen Source Right brachial, O2 % 100%, ABG pH 7.28 L, ABG pCO2 49.7 H, ABG pO2 118.1 H, ABG HCO3 23.0, ABG Total CO2 24.6, ABG O2 Saturation 98, ABG Base Excess -3.6 L, Prasanth Test Non applicable 01/18/20 01:00: Troponin I < 0.01 01/17/20 22:08: Urine Color Yellow, Urine Appearance Clear, Urine pH 6.0, Ur Specific [place] 1.020, Urine Protein Trace, Urine Glucose (UA) Negative, Urine Ketones Negative, Urine Blood Negative, Urine Nitrate Negative, Urine Bilirubin Negative, Urine Urobilinogen 0.2, Ur Leukocyte Esterase Negative, Urine WBC Occasional, Ur Squamous Epith Cells Occasional 01/17/20 21:52: Specimen Source Right radial, O2 % 3l, ABG pH 7.44, ABG pCO2 37.6, ABG pO2 55.1 L, ABG HCO3 25.1, ABG Total CO2 26.2, ABG O2 Saturation 88 L, ABG Base Excess 1.0, Prasanth Test Acceptable 01/17/20 21:40: Lactate 1.9 01/17/20 21:40: Sodium 144, Potassium 3.0 L, Chloride 100, Carbon Dioxide 30, Anion Gap 17.0 H, BUN 47 H, Creatinine 2.50 H, Estimated Creat Clear 48, Estimated GFR 27 L, Est GFR ( Amer) 32 L, Glucose 100, Calcium 9.1 01/17/20 21:40: WBC 16.4 H, RBC 4.31 L, Hgb 11.8 L, Hct 38.0 L, MCV 88.2, MCH 27.4, MCHC 31.1 L, RDW 17.1, Plt Count 172, MPV 9.5, Neut % (Auto) 84.6 H, Lymph % (Auto) 5.5 L, [place] % (Auto) 9.2, Eos % (Auto) 0.3, Baso % (Auto) 0.4, Neut # (Auto) 13.9 H, Lymph # (Auto) 0.9, [place] # (Auto) 1.5 H, Eos # (Auto) 0.1, Baso # (Auto) 0.1, Total Counted 100, Neutrophils % (Manual) 74, Band Neutrophils % 17.0 H, Lymphocytes % (Manual) 9 L, Platelet Estimate Normal, Hypochromasia 1+, Anisocytosis 1+ 01/17/20 21:40: Troponin I < 0.01 My Orders Category Date Time Status Activity as ordered ORDER Care 01/17/20 23:55 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 Care 01/18/20 03:21 Active ED EKG NOW Care 01/17/20 21:52 Completed Oxygen, Apply Nasal Cannula 3 lpm Care 01/17/20 23:55 Active XR chest portable Stat Exams 01/17/20 21:52 Taken BMP [Basic Metabolic Panel] Stat Lab 01/18/20 03:45 Ordered Basic Metabolic Panel AMLAB Lab 01/18/20 04:00 Ordered Basic Metabolic Panel Stat Lab 01/17/20 21:40 Completed Complete Blood Count Auto Diff AMLAB Lab 01/18/20 06:00 Ordered Complete Blood Count Auto Diff Stat Lab 01/17/20 21:40 Completed Lactic Acid Stat Lab 01/17/20 21:40 Completed Lactic Acid Stat Lab 01/18/20 03:41 Ordered Magnesium AMLAB Lab 01/18/20 04:00 Ordered Troponin I Q3H Lab 01/18/20 01:00 Completed Troponin I Q3H Lab 01/18/20 04:00 Ordered Troponin I Stat Lab 01/17/20 21:40 Completed Urinalysis and Microscopic Stat Lab 01/17/20 22:08 Completed 0.9 % Sodium Chloride [Saline Flush 10mL Syringe] Med 01/17/20 23:55 Ordered 10 ml IV NEEDED PRN 0.9 % Sodium Chloride [Sod Chlor 0.9% 1000mL Bag] 1,000 Med 01/17/20 23:55 Ordered ml IV 100 mls/hr 0.9 % Sodium Chloride [Sod Chlor 0.9% 1000mL Bag] 1,000 Med 01/17/20 22:00 Discontinued ml IV 999 mls/hr 0.9 % Sodium Chloride [Sod Chlor 0.9% 1000mL Bag] 1,000 Med 01/17/20 23:45 Discontinued ml IV 999 mls/hr 0.9 % Sodium Chloride [Sod Chlor 0.9% 1000mL Bag] 1,000 Med 01/17/20 23:55 Ordered ml IV 999 mls/hr 0.9 % Sodium Chloride [Sod Chlor 0.9% 1000mL Bag] ,000 Med 01/17/20 22:17 Discontinued ml IV As directed 0.9 % Sodium Chloride [Sod Chlor 0.9% 100mL Bag] 100 ml Med 01/17/20 23:19 Discontinued IV As directed 0.9 % Sodium Chloride [Sod Chlor 0.9% 250mL Bag] 250 ml Med 01/18/20 03:42 Discontinued IV As directed 0.9 % Sodium Chloride [Sod Chlor 0.9% 50mL bag] 50 ml Med 01/17/20 23:19 Discontinued IV As directed Acetaminophen [Acetaminophen 325mg tab] Med 01/17/20 23:55 Ordered 650 mg PO Q4HP PRN Atorvastatin Calcium [Lipitor 40mg Tablet] Med 01/18/20 21:00 Ordered 40 mg PO HS Cefepime HCl [Maxipime 1gm Vial] 1 gm Med 01/17/20 23:15 Discontinued 0.9 % Sodium Chloride [Sod Chloride 0.9% 50mL MB+] 50 ml IV Q12H Cefepime HCl [Maxipime 1gm Vial] 1 gm Med 01/18/20 11:15 Ordered 0.9 % Sodium Chloride [Sod Chloride 0.9% 50mL MB+] 50 ml IV Q12H Cefepime HCl [Maxipime 2gm Vial] Med 01/17/20 23:18 Discontinued 2 gm IV .STK-MED ONE Clindamycin Phosphate [Clindamycin 900mg ADV] 900 mg Med 01/17/20 23:15 Discontinued 0.9 % Sodium Chloride [Sod Chloride 0.9% 100mL Adv] 100 ml IV Q8H Clindamycin Phosphate [Clindamycin 900mg ADV] 900 mg Med 01/18/20 07:15 Ordered 0.9 % Sodium Chloride [Sod Chloride 0.9% 100mL Adv] 100 ml IV Q8H Clindamycin Phosphate [Clindamycin 900mg/6mL Vial] Med 01/17/20 23:18 Discontinued 900 mg .ROUTE .STK-MED ONE Dextrose 5 % in Water [Dextrose 5% Water 250 mL IV] 500 Med 01/18/20 03:01 Discontinued ml IV As directed Digoxin [Digoxin Injection 0.25mg/mL] Med 01/18/20 03:45 Once 125 mcg IV ONCE ONE Digoxin [Digoxin Injection 0.25mg/mL] Med 01/18/20 02:43 Discontinued 500 mcg .ROUTE .STK-MED ONE Divalproex Sodium [Depakote (Delayed Release) 500mg Tab Med 01/18/20 09:00 Ordered ] 500 mg PO TID Ipratropium/Albuterol Sulfate [Duoneb 3mL neb] Med 01/17/20 22:04 Discontinued 3 ml IH .STK-MED ONE Ipratropium/Albuterol Sulfate [Duoneb 3mL neb] Med 01/17/20 22:07 Discontinued 3 ml IH ONCE ONE Ipratropium/Albuterol Sulfate [Duoneb 3mL neb] Med 01/18/20 06:00 Ordered 3 ml IH TIDRT Methylprednisolone Sod Succ/Pf [Solu-Medrol 125mg/2mL Med 01/17/20 22:17 Discontinued vial] 125 mg .ROUTE .STK-MED ONE Methylprednisolone Sod Succ/Pf [Solu-Medrol 125mg/2mL Med 01/17/20 21:53 Discontinued vial] 125 mg IV ONCE ONE Norepinephrine Bitartrate [Levophed 4mg/4mL vial] Med 01/18/20 02:57 Discontinued 16 mg IV .STK-MED ONE Norepinephrine Bitartrate [Levophed 4mg/4mL vial] Med 01/18/20 03:01 Discontinued 16 mg IV .STK-MED ONE Phenylephrine HCl [Gabriel-Synephrine 10mg/mL vial] Med 01/18/20 03:43 Discontinued 10 mg .ROUTE .STK-MED ONE Propranolol HCl [Inderal 20mg Tablet] Med 01/18/20 09:00 Ordered 20 mg PO TID Sertraline HCl [Zoloft 100mg tablet] Med 01/18/20 09:00 Ordered 100 mg PO DAILY buPROPion HCL [Wellbutrin 75mg Tablet] Med 01/18/20 09:00 Ordered 75 mg PO DAILY Blood Culture Stat Micro 01/17/20 21:40 Received Admit Patient; Obs/Outpt Routine Oth 01/17/20 23:55 Ordered Code Status Routine Oth 01/17/20 23:34 Ordered Arterial Blood Gas Routine RT 01/17/20 21:52 Completed Arterial Blood Gas Routine RT 01/18/20 03:36 Completed Transfer Order Routine Transfer 01/17/20 23:33 Completed Rapid Response Exam - General General appearance: lethargic - Head Head exam: atraumatic - Eye Eye exam: Present: PERRL, EOMI - ENT ENT exam: Present: mucous membranes dry - Neck Neck exam: Present: trachea midline - Respiratory Respiratory exam: Absent: respiratory distress - Cardiovascular Cardiovascular exam: Present: irregular rhythm - Abdominal Exam Abdominal exam: Present: soft - Neurological Exam Neurological exam: Present: other (no posturing ) - Psychiatric Psychiatric exam: Present: other - Skin Skin exam: Absent: rash RR Procedures/Assess/Plan - Assessment and plan all Dx Assessment and Plan for all problems:: pt with acute a fib with dec bp -
[2020-01-18 03:53] LABS: Basophils # 0.1 K/mm3 (0-0.2); Basophils % 0.4 % (0.1-2.0); Eosinophils # 0.1 K/mm3 (0.0-0.4); Eosinophils % 0.3 % (0.1-12.0); Hematocrit 38.5 % (42.0-52.0); Hemoglobin 11.7 g/dL (14.1-18.0); Lymphocytes # 1.4 K/mm3 (0.7-4.5); Lymphocytes % 7.3 % (10-50); Mean Corpuscular HGB Conc 30.5 g/dL (31.8-35.4); Mean Corpuscular Volume 90.9 fl (80-94); Mean Platelet Volume 9.2 fl (7.4-10.4); Monocytes # 1.2 K/mm3 (0.1-1.0); Monocytes % 6.6 % (1.7-9.3); Neutrophils # 15.7 K/mm3 (1.8-7.8); Neutrophils % 85.3 % (37.0-80.0); Platelet Count 154 K/mm3 (142-424); Red Blood Count 4.23 M/mm3 (4.60-6.20); Red Cell Distribution Width 16.8 % (11.5-17.5); White Blood Count 18.4 K/mm3 (4.8-10.8)
[2020-01-18 03:59] LABS: Chloride 108 mmol/L (98-107); Sodium 146 mmol/L (136-145)
[2020-01-18 04:02] LABS: Anion Gap 14.2 mEq/L (5-15); Blood Urea Nitrogen 45 mg/dl (9-20); Calcium 8.2 mg/dl (8.4-10.2); Carbon Dioxide 27 mmol/L (22.0-30.0)
[2020-01-18 04:04] LABS: Glucose 121 mg/dl (74-100)
--- NOTE | 2020-01-18 07:26 | Sepsis Event Note ---
H Tissue Perfusion Eval Sepsis Re-Evaluation Performed: Yes Date Performed: 01/18/20 Time Performed: 06:00
--- NOTE | 2020-01-18 07:30 | History & Physical Report ---
*Admission Date: 01/17/20 *Chief complaint: sob *History of present illness: this wm sent from f with dec loc and dec sat - he has been treated as op with levofloxin with resp illness - he had been admitted in 01/16 with hcap- pt had recent ct chest -which showed ongoing pneumonia -pt presented to ed and not able to give specific hx - had elevated wbc and has failed op abx and will be admitted - pt dev episode od a fib with rvr and assoc low bp with sepsis criteria with organ dysfunction and septic shock-pt on bp support and o2 and ivf - becky for accurate i/o [facility] History I have reviewed the patient's past medical history: Yes Medical History: Reports:: Hyperlipidemia Denies:: Diabetes Mellitus Type 1, Diabetes Mellitus Type 2 *Have you ever received a pneumonia vaccine?: Yes *Have you received a flu vaccine this season?: No Other Medical History: Reports: Anemia Laterality Cases: Left: Total Hip Replacement Fractures: Yes (HUMERUS, L RIBS, L RADIUS, SACRAM,COCCYX) - *Social History Smoking Status: Current every day smoker Tobacco Type: cigarettes # Packs/Day (cigarettes): 1 Alcohol Intake: never *Occupational Status:: disabled Housing: halfway Household Members: other *Travel in the last 8 weeks: None Family Hx:: Unable to obtain Review of Systems - Review of Systems Review of systems:: unable to obtain Meds Home Medications Medication Instructions Recorded Confirmed Type Acetaminophen 1,000 mg PO Q6HP PRN 11/10/19 01/18/20 History Atorvastatin Calcium [Atorvastatin 40 mg PO HS 11/10/19 01/17/20 History 40mg Tab] Cholecalciferol (Vitamin D3) 1,000 unit PO DAILY 11/10/19 01/17/20 History [Vitamin D3 1,000 Unit Cap] Divalproex Sodium [Depakote] 500 mg PO TID 11/10/19 01/17/20 History Gabapentin [Gabapentin 100mg Cap] 100 mg PO TID 11/10/19 01/17/20 History Loratadine [Claritin] 10 mg PO DAILY 11/10/19 01/17/20 History Melatonin [Melatin] 6 mg PO HS 11/10/19 01/17/20 History Propranolol HCl [Inderal 20mg 20 mg PO TID 11/10/19 01/17/20 History tablet] Sertraline HCl [Zoloft] 100 mg PO DAILY 11/10/19 01/17/20 History raNITIdine HCL [Ranitidine HCl] 300 mg PO HS 11/10/19 01/17/20 History buPROPion HCL [Wellbutrin 75mg 75 mg PO DAILY 12/29/19 01/17/20 History Tablet] Fluticasone/Salmeterol [Advair 1 inh IH BID 01/17/20 01/17/20 History 250/50mcg Diskus] levoFLOXacin [Levaquin 500mg 500 mg PO DAILY 01/17/20 01/17/20 History tab] Quetiapine Fumarate [Seroquel 50 50 mg PO HS 01/18/20 01/18/20 History mg Tablets] Allergies Allergy/AdvReac Type Severity Reaction Status Date / Time bee pollen Allergy Verified 01/17/20 21:51 Exam Vital signs and Labs for Last 24 Hours: Temp Pulse Resp BP Pulse Ox 99.1 F 73 16 123/64 90 L 01/18/20 06:00 01/18/20 06:15 01/18/20 06:15 01/18/20 06:15 01/18/20 06:15 Laboratory Results - last 24 hr 01/17/20 21:40: Troponin I < 0.01 01/17/20 21:40: WBC 16.4 H, RBC 4.31 L, Hgb 11.8 L, Hct 38.0 L, MCV 88.2, MCH 27.4, MCHC 31.1 L, RDW 17.1, Plt Count 172, MPV 9.5, Neut % (Auto) 84.6 H, Lymph % (Auto) 5.5 L, [place] % (Auto) 9.2, Eos % (Auto) 0.3, Baso % (Auto) 0.4, Neut # (Auto) 13.9 H, Lymph # (Auto) 0.9, [place] # (Auto) 1.5 H, Eos # (Auto) 0.1, Baso # (Auto) 0.1, Total Counted 100, Neutrophils % (Manual) 74, Band Neutrophils % 17.0 H, Lymphocytes % (Manual) 9 L, Platelet Estimate Normal, Hypochromasia 1+, Anisocytosis 1+ 01/17/20 21:40: Sodium 144, Potassium 3.0 L, Chloride 100, Carbon Dioxide 30, Anion Gap 17.0 H, BUN 47 H, Creatinine 2.50 H, Estimated Creat Clear 48, Estimated GFR 27 L, Est GFR ( Amer) 32 L, Glucose 100, Calcium 9.1 01/17/20 21:40: Lactate 1.9 01/17/20 21:52: Specimen Source Right radial, O2 % 3l, ABG pH 7.44, ABG pCO2 37.6, ABG pO2 55.1 L, ABG HCO3 25.1, ABG Total CO2 26.2, ABG O2 Saturation 88 L, ABG Base Excess 1.0, Prasanth Test Acceptable 01/17/20 22:08: Urine Color Yellow, Urine Appearance Clear, Urine pH 6.0, Ur Specific [place] 1.020, Urine Protein Trace, Urine Glucose (UA) Negative, Urine Ketones Negative, Urine Blood Negative, Urine Nitrate Negative, Urine Bilirubin Negative, Urine Urobilinogen 0.2, Ur Leukocyte Esterase Negative, Urine WBC Occasional, Ur Squamous Epith Cells Occasional 01/18/20 01:00: Troponin I < 0.01 01/18/20 02:47: POC Glucose 109 01/18/20 03:36: Specimen Source Right brachial, O2 % 100%, ABG pH 7.28 L, ABG pCO2 49.7 H, ABG pO2 118.1 H, ABG HCO3 23.0, ABG Total CO2 24.6, ABG O2 Saturation 98, ABG Base Excess -3.6 L, Prasanth Test Non applicable 01/18/20 03:45: WBC 18.4 H, RBC 4.23 L, Hgb 11.7 L, Hct 38.5 L, MCV 90.9, MCH 27.7, MCHC 30.5 L, RDW 16.8, Plt Count 154, MPV 9.2, Neut % (Auto) 85.3 H, Lymph % (Auto) 7.3 L, [place] % (Auto) 6.6, Eos % (Auto) 0.3, Baso % (Auto) 0.4, Neut # (Auto) 15.7 H, Lymph # (Auto) 1.4, [place] # (Auto) 1.2 H, Eos # (Auto) 0.1, Baso # (Auto) 0.1 01/18/20 03:45: Sodium 146 H, Potassium 3.2 L, Chloride 108 H, Carbon Dioxide 27, Anion Gap 14.2, BUN 45 H, Creatinine 1.90 H D, Estimated Creat Clear 46, Estimated GFR 37 L, Est GFR ( Amer) 44 L D, Glucose 121 H D, Calcium 8.2 L, Magnesium 2.0, Troponin I < 0.01 01/18/20 03:45: Lactate 1.6 I & O for Last 24 hours: Intake & Output 01/15/20 01/16/20 01/17/20 01/18/20 11:59 11:59 11:59 11:59 Intake Total 5088 / 5088 Output Total 1100 / 1100 Balance 3988 / 3988 Weight 167 lb 6 oz - Constitutional obtunded - *Routine HEENT Exam Head: Present: normocephalic Eye: Present: EOMI, PERRL ENT: Present: mucous membranes dry - *Routine Neck Exam Absent: JVD - *Routine Respiratory Exam Present: decreased breath sounds - *Routine Cardiovascular Exam Present: RRR, murmur, S4 - *Routine Abdominal Exam Present: soft - *Routine Extremities Exam Present: edema - *Routine Skin Exam Present: intact - *Routine Neurological Exam Present: altered mental status no focal changes and no posturing - Routine Psychiatric Exam Present: unable to assess Assessment and Plan (1) BROCK (acute kidney injury) Current visit: Yes Status: Acute Category: Medical Code(s): N17.9 - Acute kidney failure, unspecified (2) HCAP (healthcare-associated pneumonia) Current visit: Yes Status: Acute Category: Medical Code(s): J18.9 - Pneumonia, unspecified organism (3) Atrial fibrillation with rapid ventricular response Current visit: Yes Status: Acute Category: Medical Code(s): I48.91 - Unspecified atrial fibrillation (4) Severe sepsis with acute organ dysfunction Current visit: Yes Status: Acute Category: Medical Code(s): A41.9 - Sepsis, unspecified organism; R65.20 - Severe sepsis without septic shock (5) Septic shock Current visit: Yes Status: Acute Category: Medical Code(s): A41.9 - Sepsis, unspecified organism; R65.21 - Severe sepsis with septic shock (6) History of nephrectomy Current visit: Yes Status: Acute Category: Surgical Code(s): Z90.5 - Acquired absence of kidney
--- NOTE | 2020-01-18 09:08 | Pharmacy Consult Notes ---
[facility] Pharmacy VTE Monitoring - Patient Demographics Admission date: 01/18/20 Report Date: 01/18/20 Time: 09:08 Allergies/Adverse Reactions: Patient Allergies bee pollen Allergy (Verified 01/17/20 21:51) Height: 1.8 m Weight: 75.92 kg Patient Problems: Current Active Problems HCAP (healthcare-associated pneumonia) (Acute) BROCK (acute kidney injury) (Acute) Obesity (BMI 30.0-34.9) (Acute) Hypokalemia (Acute) Leukocytosis (Acute) Atrial fibrillation with rapid ventricular response (Acute) Severe sepsis with acute organ dysfunction (Acute) Septic shock (Acute) History of nephrectomy (Acute) - VTE Risk Labs: VTE Related Lab Results Hgb 11.7 g/dL (14.1-18.0) L 01/18/20 03:45 Hct 38.5 % (42.0-52.0) L 01/18/20 03:45 Plt Count 154 K/mm3 (142-424) 01/18/20 03:45 BUN 45 mg/dl (9-20) H 01/18/20 03:45 Creatinine 1.90 mg/dl (0.66-1.25) H D 01/18/20 03:45 Estimated Creat Clear 46 mL/min (50-200) 01/18/20 03:45 VTE Risk Level: Moderate Risk - Prophylaxis VTE Prophylaxis Ordered?: Yes Types of VTE Prophylaxis: TEDS Knee High Location of Applied Device: Bilateral Lower Extremeties - VTE Diagnosis Confirmed Treatment or plan recommended: Continue Current Treatment
[2020-01-18 11:03] LABS: ABG Base Excess -1.3 mmol/L (-2.4-2.3); ABG HCO3 24.5 mmhg (22.0-26.0); ABG Oxygen Saturation 97 % (90-100); ABG PCO2 46.2 mmhg (35.0-45.0); ABG PH 7.34 mmol/L (7.35-7.45); ABG PO2 96.3 mmhg (80-100); ABG TCO2 25.9 mmhg (23-27)
[2020-01-18 11:06] LABS: Allen's Test Non Applicable; Oxygen 70% %
[2020-01-18 12:40] LABS: Basophils % 0.2 % (0.1-2.0); Eosinophils % 0.1 % (0.1-12.0); Hematocrit 36.9 % (42.0-52.0); Hemoglobin 11.2 g/dL (14.1-18.0); Lymphocytes # 1.2 K/mm3 (0.7-4.5); Lymphocytes % 5.8 % (10-50); Mean Corpuscular HGB Conc 30.4 g/dL (31.8-35.4); Mean Corpuscular Volume 89.7 fl (80-94); Mean Platelet Volume 8.7 fl (7.4-10.4); Monocytes # 0.6 K/mm3 (0.1-1.0); Monocytes % 3.2 % (1.7-9.3); Neutrophils % 90.7 % (37.0-80.0); Platelet Count 206 K/mm3 (142-424); Red Blood Count 4.12 M/mm3 (4.60-6.20); White Blood Count 19.8 K/mm3 (4.8-10.8)
[2020-01-18 12:48] LABS: Calcium 7.9 mg/dl (8.4-10.2)
--- NOTE | 2020-01-18 13:08 | Electrocardiograph Report ---
APPROVED REPORT Exam: Resting ECG HR:140 bpm ECG Measurements Heart Rate 140 AXES QRSd 82 QRS 5 QT 326 T231 QTc 497 <Conclusion> Atrial fibrillation with rapid ventricular response with premature ventricular or aberrantly conducted complexes ST & T wave abnormality, consider inferior ischemia or digitalis effect Abnormal ECG Electronically signed by : Jayson Lees, 01/18/2020 13:08:22
--- NOTE | 2020-01-18 13:09 | Electrocardiograph Report ---
APPROVED REPORT Exam: Resting ECG HR:82 bpm ECG Measurements Heart Rate 82 AXES RI 156 P 45 QRSd 98 QRS 3 QT 370 T34 QTc 432 <Conclusion> Normal sinus rhythm Nonspecific T wave abnormality Abnormal ECG Electronically signed by : Jayson Lees, 01/18/2020 13:08:27
[2020-01-18 14:22] LABS: Lymphocytes % 11 % (10-50); Monocytes % 1 % (2-9); Neutrophils % 87 % (42-76); Total Cells Counted 100
[2020-01-18 14:23] LABS: Anisocytosis 1+; Hypochromasia 1+
[2020-01-19 06:57] LABS: Basophils # 0.1 K/mm3 (0-0.2); Basophils % 0.4 % (0.1-2.0); Eosinophils % 0.2 % (0.1-12.0); Hematocrit 40.7 % (42.0-52.0); Lymphocytes # 0.8 K/mm3 (0.7-4.5); Lymphocytes % 6.2 % (10-50); Mean Corpuscular HGB Conc 30.9 g/dL (31.8-35.4); Mean Corpuscular Volume 88.6 fl (80-94); Monocytes # 0.9 K/mm3 (0.1-1.0); Neutrophils # 11.6 K/mm3 (1.8-7.8); Neutrophils % 86.1 % (37.0-80.0); Platelet Count 127 K/mm3 (142-424); Red Blood Count 4.59 M/mm3 (4.60-6.20); White Blood Count 13.5 K/mm3 (4.8-10.8)
[2020-01-19 07:09] LABS: Anion Gap 12.8 mEq/L (5-15); Calcium 8.3 mg/dl (8.4-10.2)
[2020-01-19 07:11] LABS: Hemoglobin 12.6 g/dL (14.1-18.0)
[2020-01-19 07:19] LABS: Hypochromasia 1+; Lymphocytes % 10 % (10-50); Monocytes % 3 % (2-9); Neutrophils % 74 % (42-76); Total Cells Counted 100
--- NOTE | 2020-01-19 07:46 | Progress Note ---
Internal Medicine - PN: Subj *Date: 01/19/20 *Time: 07:44 Interval history: doing better more alert - labs - sl improved but inc changes on cxr - off drips Exam Vital signs and Labs for Last 24 Hours: Temp Pulse Resp BP Pulse Ox 98.4 F 71 18 113/49 L 91 L 01/19/20 04:00 01/19/20 06:46 01/19/20 06:00 01/19/20 06:00 01/19/20 06:46 Laboratory Results - last 24 hr 01/18/20 10:59: Specimen Source Right brachial, O2 % 70%, ABG pH 7.34 L, ABG pCO2 46.2 H, ABG pO2 96.3, ABG HCO3 24.5, ABG Total CO2 25.9, ABG O2 Saturation 97, ABG Base Excess -1.3, Prasanth Test Non applicable 01/18/20 12:26: WBC 19.8 H, RBC 4.12 L, Hgb 11.2 L, Hct 36.9 L, MCV 89.7, MCH 2 7.3, MCHC 30.4 L, RDW 17.0, Plt Count 206 D, MPV 8.7, Neut % (Auto) 90.7 H, Lymph % (Auto) 5.8 L, [place] % (Auto) 3.2, Eos % (Auto) 0.1, Baso % (Auto) 0.2, Neut # (Auto) 18.0 H, Lymph # (Auto) 1.2, [place] # (Auto) 0.6, Eos # (Auto) 0.0, Baso # (Auto) 0.0, Total Counted 100, Neutrophils % (Manual) 87 H, Lymphocytes % (Manual) 11, Monocytes % (Manual) 1 L, Metamyelocytes % 1.0, Platelet Estimate Normal, Hypochromasia 1+, Poikilocytosis 1+, Anisocytosis 1+, [place] Cells 1+, Acanthocytes (Spur) 1+ 01/18/20 12:26: Sodium 147 H, Potassium 3.2 L, Chloride 111 H, Carbon Dioxide 24, Anion Gap 12.0, BUN 43 H, Creatinine 1.80 H, Estimated Creat Clear 49, Estimated GFR 39 L, Est GFR ( Amer) 47 L, Glucose 133 H, Calcium 7.9 L 01/19/20 06:28: WBC 13.5 H D, RBC 4.59 L, Hgb 12.6 L D, Hct 40.7 L, MCV 88.6, MCH 27.4, MCHC 30.9 L, RDW 17.0, Plt Count 127 L D, MPV 9.0, Neut % (Auto) 86.1 H, Lymph % (Auto) 6.2 L, [place] % (Auto) 7.0, Eos % (Auto) 0.2, Baso % (Auto) 0.4, Neut # (Auto) 11.6 H, Lymph # (Auto) 0.8, [place] # (Auto) 0.9, Eos # (Auto) 0.0, Baso # (Auto) 0.1, Total Counted 100, Neutrophils % (Manual) 74, Band Neutrophils % 13.0 H, Lymphocytes % (Manual) 10, Monocytes % (Manual) 3, Platelet Estimate Slight decrease, Hypochromasia 1+ 01/19/20 06:28: Sodium 145, Potassium 3.8, Chloride 113 H, Carbon Dioxide 23, Anion Gap 12.8, BUN 52 H, Creatinine 1.50 H, Estimated Creat Clear 62, Estimated GFR 48 L, Est GFR ( Amer) 58 L D, Glucose 104 H D, Calcium 8.3 L I & O for Last 24 hours: Intake & Output 01/16/20 01/17/20 01/18/20 01/19/20 11:59 11:59 11:59 11:59 Intake Total 5088 / 5088 4551 / 4551 Output Total 1100 / 1100 Balance 3988 / 3988 4551 / 4551 Weight 167 lb 6 oz 178 lb 6 oz - Constitutional no acute distress - *Routine HEENT Exam Head: Present: normocephalic Eye: Present: EOMI, PERRL ENT: Present: mucous membranes dry - *Routine Neck Exam Present: supple. Absent: JVD - *Routine Respiratory Exam Present: decreased breath sounds - *Routine Cardiovascular Exam Present: RRR, murmur - *Routine Abdominal Exam Present: soft. Absent: tenderness - *Routine Extremities Exam Absent: calf tenderness - *Routine Skin Exam Present: intact - *Routine Neurological Exam Present: alert, CN II-XII intact - Routine Psychiatric Exam Present: cooperative. Absent: good insight Assessment and Plan (1) BROCK (acute kidney injury) Current visit: Yes Status: Acute Category: Medical Code(s): N17.9 - Acute kidney failure, unspecified (2) HCAP (healthcare-associated pneumonia) Current visit: Yes Status: Acute Category: Medical Code(s): J18.9 - Pneumonia, unspecified organism (3) Atrial fibrillation with rapid ventricular response Current visit: Yes Status: Acute Category: Medical Code(s): I48.91 - Unspecified atrial fibrillation (4) Severe sepsis with acute organ dysfunction Current visit: Yes Status: Acute Category: Medical Code(s): A41.9 - Sepsis, unspecified organism; R65.20 - Severe sepsis without septic shock (5) Septic shock Current visit: Yes Status: Acute Category: Medical Code(s): A41.9 - Sepsis, unspecified organism; R65.21 - Severe sepsis with septic shock (6) History of nephrectomy Current visit: Yes Status: Acute Category: Surgical Code(s): Z90.5 - Acquired absence of kidney
[2020-01-20 06:38] LABS: Basophils # 0.1 K/mm3 (0-0.2); Basophils % 0.6 % (0.1-2.0); Eosinophils # 0.1 K/mm3 (0.0-0.4); Eosinophils % 0.3 % (0.1-12.0); Hematocrit 46.4 % (42.0-52.0); Lymphocytes # 1.1 K/mm3 (0.7-4.5); Lymphocytes % 5.9 % (10-50); Mean Corpuscular HGB Conc 30.6 g/dL (31.8-35.4); Mean Corpuscular Volume 87.9 fl (80-94); Mean Platelet Volume 8.6 fl (7.4-10.4); Monocytes # 1.5 K/mm3 (0.1-1.0); Monocytes % 8.3 % (1.7-9.3); Neutrophils # 15.7 K/mm3 (1.8-7.8); Platelet Count 153 K/mm3 (142-424); Red Blood Count 5.28 M/mm3 (4.60-6.20); Red Cell Distribution Width 17.5 % (11.5-17.5); White Blood Count 18.4 K/mm3 (4.8-10.8)
[2020-01-20 06:44] LABS: Anion Gap 11.8 mEq/L (5-15); Calcium 8.2 mg/dl (8.4-10.2)
[2020-01-20 06:52] LABS: Hemoglobin 14.3 g/dL (14.1-18.0)
[2020-01-20 07:52] LABS: Lymphocytes % 12 % (10-50); Monocytes % 10 % (2-9); Neutrophils % 78 % (42-76); Total Cells Counted 100
[2020-01-20 07:53] LABS: Hypochromasia 1+
--- NOTE | 2020-01-20 08:27 | Progress Note ---
Internal Medicine - PN: Subj *Date: 01/20/20 *Time: 08:26 Interval history: more alert but more sob this am and will need speech and card eval Exam Vital signs and Labs for Last 24 Hours: Temp Pulse Resp BP Pulse Ox 97.8 F 86 19 103/83 L 92 L 01/20/20 08:00 01/20/20 06:24 01/20/20 06:00 01/20/20 06:00 01/20/20 06:24 Laboratory Results - last 24 hr 01/19/20 07:00: Stl Aeromonas (PCR) Not detected, Stl C. cayetanensis PCR Not detected, Stool Rotavirus (PCR) Not detected, Stl Adenov F 40/41 PCR Not detected, Stool Astrovirus (PCR) Not detected, Stool Campylobacter PCR Not detected, Stl C.difficile Tox PCR Detected A, Stool Cryptosporidium PCR Not detected, Stl E.coli Shiga Tox PCR Not detected, Stool E coli O157 PCR Not detected, Stl Enterotoxigenic E PCR Not detected, Stool EPEC (PCR) Not detected, Stool EAEC (PCR) Not detected, Stl E. histolytica PCR Not detected, Stool Giardia Lamblia PCR Not detected, Stool Salmonella PCR Not detected, Stool Sapovirus (PCR) Not detected, Stl P. shigelloides PCR Not detected, Stl Shigella/EIEC PCR Not detected, St Y.enterocolitica PCR Not detected, Stool Vibrio (PCR) Not detected, Stl Vibrio cholerae PCR Not detected, Stl Norovirus GI/GII PCR Not detected 01/20/20 06:20: WBC 18.4 H D, RBC 5.28, Hgb 14.3 D, Hct 46.4, MCV 87.9, MCH 26.9 L, MCHC 30.6 L, RDW 17.5, Plt Count 153, MPV 8.6, Neut % (Auto) 85.0 H, Lymph % (Auto) 5.9 L, [place] % (Auto) 8.3, Eos % (Auto) 0.3, Baso % (Auto) 0.6, Neut # (Auto) 15.7 H, Lymph # (Auto) 1.1, [place] # (Auto) 1.5 H, Eos # (Auto) 0.1, Baso # (Auto) 0.1, Total Counted 100, Neutrophils % (Manual) 78 H, Lymphocytes % (Manual) 12, Monocytes % (Manual) 10 H, Platelet Estimate Slight decrease, RBC Morphology Not Reportable, Hypochromasia 1+ 01/20/20 06:20: Sodium 145, Potassium 3.8, Chloride 114 H, Carbon Dioxide 23, Anion Gap 11.8, BUN 54 H, Creatinine 1.40 H, Estimated Creat Clear 69, Estimated GFR 52 L, Est GFR ( Amer) 63, Glucose 85, Calcium 8.2 L I & O for Last 24 hours: Intake & Output 01/17/20 01/18/20 01/19/20 01/20/20 11:59 11:59 11:59 11:59 Intake Total 5088 / 5088 4551 / 4551 2981 / 2981 Output Total 1100 / 1100 Balance 3988 / 3988 4551 / 4551 2980 / 2980 Weight 167 lb 6 oz 178 lb 6 oz 183 lb 8 oz Microbiology Reports for the Last 24 Hours: Microbiology 01/17/20 21:40 Blood Blood Culture - Preliminary NO GROWTH AFTER 48 HOURS 01/17/20 21:40 Blood Blood Culture - Preliminary NO GROWTH AFTER 48 HOURS Assessment and Plan (1) BROCK (acute kidney injury) Current visit: Yes Status: Acute Category: Medical Code(s): N17.9 - Acute kidney failure, unspecified (2) HCAP (healthcare-associated pneumonia) Current visit: Yes Status: Acute Category: Medical Code(s): J18.9 - Pneumonia, unspecified organism (3) Atrial fibrillation with rapid ventricular response Current visit: Yes Status: Acute Category: Medical Code(s): I48.91 - Unspecified atrial fibrillation (4) Severe sepsis with acute organ dysfunction Current visit: Yes Status: Acute Category: Medical Code(s): A41.9 - Sepsis, unspecified organism; R65.20 - Severe sepsis without septic shock (5) Septic shock Current visit: Yes Status: Acute Category: Medical Code(s): A41.9 - Sepsis, unspecified organism; R65.21 - Severe sepsis with septic shock (6) History of nephrectomy Current visit: Yes Status: Acute Category: Surgical Code(s): Z90.5 - Acquired absence of kidney
--- NOTE | 2020-01-20 09:01 | Consult Report ---
History of Present Illness Consult date: 01/20/20 Requesting physician: Uli Schmitt Consult reason: atrial fibrillation Chief complaint: SOA, A. fib with RVR Additional Medical History:: 1. History of tobacco use 2. HCAP, 12/2019 3. A. fib with RVR, transient, 12/2019, in settin of HCAP/Respiratory distress 4. Hyperlipidemia 5. Chronic kidney disease A. History of nephrectomy 6. Questionable history of seizure disorder, patient is on Depakote History of present illness: 59-year-old white male resident of [facility] was sent to the ER for evaluation of shortness of breath with associated hypoxemia despite supplemental oxygen. He was recently diagnosed with pneumonia which has been treated with outpatient levofloxacin. Patient subsequently has failed outpatient therapy and was admitted for further evaluation and treatment. During his first night here patient developed rapid atrial fibrillation with low blood pressure which responded to IV fluids, Levophed and phenylephrine along with IV digoxin. Patient subsequently converted back to sinus rhythm with improvement in blood pressure and weaning off of the Levophed and phenylephrine. Patient is a poor historian. He will only answer simple questions but then falls back asleep. He does not open his eyes. Telemetry shows sinus rhythm with blood pressure above 150 systolic. [facility] History Medical History: Reports:: Hyperlipidemia Denies:: Diabetes Mellitus Type 1, Diabetes Mellitus Type 2 *Have you ever received a pneumonia vaccine?: Yes *Have you received a flu vaccine this season?: No Other Medical History: Reports: Anemia Laterality Cases: Left: Total Hip Replacement Fractures: Yes (HUMERUS, L RIBS, L RADIUS, SACRAM,COCCYX) - *Social History Smoking Status: Current every day smoker Tobacco Type: cigarettes # Packs/Day (cigarettes): 1 Alcohol Intake: never *Occupational Status:: disabled Housing: prison Household Members: other *Travel in the last 8 weeks: None Family Hx:: Unable to obtain Meds Home Medications Medication Instructions Recorded Confirmed Type Acetaminophen 1,000 mg PO Q6HP PRN 11/10/19 01/18/20 History Atorvastatin Calcium [Atorvastatin 40 mg PO HS 11/10/19 01/17/20 History 40mg Tab] Cholecalciferol (Vitamin D3) 1,000 unit PO DAILY 11/10/19 01/17/20 History [Vitamin D3 1,000 Unit Cap] Divalproex Sodium [Depakote] 500 mg PO TID 11/10/19 01/17/20 History Gabapentin [Gabapentin 100mg Cap] 100 mg PO TID 11/10/19 01/17/20 History Loratadine [Claritin] 10 mg PO DAILY 11/10/19 01/17/20 History Melatonin [Melatin] 6 mg PO HS 11/10/19 01/17/20 History Propranolol HCl [Inderal 20mg 20 mg PO TID 11/10/19 01/17/20 History tablet] Sertraline HCl [Zoloft] 100 mg PO DAILY 11/10/19 01/17/20 History raNITIdine HCL [Ranitidine HCl] 300 mg PO HS 11/10/19 01/17/20 History buPROPion HCL [Wellbutrin 75mg 75 mg PO DAILY 12/29/19 01/17/20 History Tablet] Fluticasone/Salmeterol [Advair 1 puff IH BID 01/17/20 01/18/20 History 250/50mcg Diskus] levoFLOXacin [Levaquin 500mg 500 mg PO DAILY 01/17/20 01/17/20 History tab] Quetiapine Fumarate [Seroquel 50 100 mg PO HS 01/18/20 01/18/20 History mg Tablets] Allergies Allergy/AdvReac Type Severity Reaction Status Date / Time bee pollen Allergy Verified 01/17/20 21:51 Review of Systems - Review of Systems Review of systems:: unable to obtain Exam Vital signs and Labs for Last 24 Hours: Temp Pulse Resp BP Pulse Ox 97.8 F 86 19 103/83 L 92 L 01/20/20 08:00 01/20/20 06:24 01/20/20 06:00 01/20/20 06:00 01/20/20 06:24 Laboratory Results - last 24 hr 01/19/20 07:00: Stl Aeromonas (PCR) Not detected, Stl C. cayetanensis PCR Not detected, Stool Rotavirus (PCR) Not detected, Stl Adenov F 40/41 PCR Not detected, Stool Astrovirus (PCR) Not detected, Stool Campylobacter PCR Not detected, Stl C.difficile Tox PCR Detected A, Stool Cryptosporidium PCR Not detected, Stl E.coli Shiga Tox PCR Not detected, Stool E coli O157 PCR Not detected, Stl Enterotoxigenic E PCR Not detected, Stool EPEC (PCR) Not detected, Stool EAEC (PCR) Not detected, Stl E. histolytica PCR Not detected, Stool Giardia Lamblia PCR Not detected, Stool Salmonella PCR Not detected, Stool Sapovirus (PCR) Not detected, Stl P. shigelloides PCR Not detected, Stl Shigella/EIEC PCR Not detected, St Y.enterocolitica PCR Not detected, Stool Vibrio (PCR) Not detected, Stl Vibrio cholerae PCR Not detected, Stl Norovirus GI/GII PCR Not detected 01/20/20 06:20: WBC 18.4 H D, RBC 5.28, Hgb 14.3 D, Hct 46.4, MCV 87.9, MCH 26.9 L, MCHC 30.6 L, RDW 17.5, Plt Count 153, MPV 8.6, Neut % (Auto) 85.0 H, Lymph % (Auto) 5.9 L, [place] % (Auto) 8.3, Eos % (Auto) 0.3, Baso % (Auto) 0.6, Neut # (Auto) 15.7 H, Lymph # (Auto) 1.1, [place] # (Auto) 1.5 H, Eos # (Auto) 0.1, Baso # (Auto) 0.1, Total Counted 100, Neutrophils % (Manual) 78 H, Lymphocytes % (Manual) 12, Monocytes % (Manual) 10 H, Platelet Estimate Slight decrease, RBC Morphology Not Reportable, Hypochromasia 1+ 01/20/20 06:20: Sodium 145, Potassium 3.8, Chloride 114 H, Carbon Dioxide 23, Anion Gap 11.8, BUN 54 H, Creatinine 1.40 H, Estimated Creat Clear 69, Estimated GFR 52 L, Est GFR ( Amer) 63, Glucose 85, Calcium 8.2 L I & O for Last 24 hours: Intake & Output 01/17/20 01/18/20 01/19/20 01/20/20 11:59 11:59 11:59 11:59 Intake Total 5088 / 5088 4551 / 4551 2981 / 2981 Output Total 1100 / 1100 Balance 3988 / 3988 4551 / 4551 2980 / 2980 Weight 167 lb 6 oz 178 lb 6 oz 183 lb 8 oz Microbiology Reports for the Last 24 Hours: Microbiology 01/17/20 21:40 Blood Blood Culture - Preliminary NO GROWTH AFTER 48 HOURS 01/17/20 21:40 Blood Blood Culture - Preliminary NO GROWTH AFTER 48 HOURS - *Routine Neck Exam Present: supple. Absent: JVD, carotid bruit - *Routine Respiratory Exam Present: rhonchi. Absent: accessory muscle use, rales, wheezes - *Routine Cardiovascular Exam Present: RRR. Absent: murmur, gallop, rubs - *Routine Abdominal Exam Present: soft. Absent: tenderness, distended, guarding - *Routine Extremities Exam Absent: edema, calf tenderness Comments: Right foot is cooler than left with minimal pulses bilaterally. Bilateral pill-rolling with hands. - *Routine Neurological Exam Present: alert, moving all extremities Assessment and Plan (1) BROCK (acute kidney injury) Current visit: Yes Status: Acute Category: Medical Code(s): N17.9 - Acute kidney failure, unspecified (2) HCAP (healthcare-associated pneumonia) Current visit: Yes Status: Acute Category: Medical Code(s): J18.9 - Pneumonia, unspecified organism (3) Atrial fibrillation with rapid ventricular response Current visit: Yes Status: Acute Category: Medical Code(s): I48.91 - Unspecified atrial fibrillation (4) Severe sepsis with acute organ dysfunction Current visit: Yes Status: Acute Category: Medical Code(s): A41.9 - Sepsis, unspecified organism; R65.20 - Severe sepsis without septic shock (5) Septic shock Current visit: Yes Status: Acute Category: Medical Code(s): A41.9 - Sepsis, unspecified organism; R65.21 - Severe sepsis with septic shock (6) History of nephrectomy Current visit: Yes Status: Acute Category: Surgical Code(s): Z90.5 - Acquired absence of kidney - Assessment and plan all Dx Assessment and Plan for all problems:: 1. Atrial fibrillation with a rapid ventricular response, transient, in setting of pneumonia and sepsis with acute kidney injury. Patient returned to sinus rhythm after IV fluid boluses, IV digoxin and pressure support for hypotension. Obtain an echocardiogram to evaluate left ventricular size, function and left atrial size. Likely A. fib was related to respiratory status and with CHADS- VASC score of 1 (HTN) with 1.9% CVA risk annually, would not recommend anticoagulation at this time. Continue propranolol 20 mg 3 times daily at this time pending echocardiogram results. 2. Pneumonia/sepsis, per Dr. Schmitt 3. Chronic kidney disease with history of nephrectomy, improved with IV fluids 4. Hyperlipidemia, continue statin therapy 5. Hypokalemia, corrected 6. C. difficile positive, on antibiotic therapy
[2020-01-20 13:21] LABS: ABG Base Excess -8.3 mmol/L (-2.4-2.3); ABG HCO3 16.4 mmhg (22.0-26.0); ABG Oxygen Saturation 81 % (90-100); ABG PCO2 26.4 mmhg (35.0-45.0); ABG PH 7.41 mmol/L (7.35-7.45); ABG TCO2 17.2 mmhg (23-27)
[2020-01-20 13:25] LABS: Allen's Test Patient Unable; Oxygen 32% NC %
[2020-01-20 13:28] LABS: ABG PO2 46.8 mmhg (80-100)
[2020-01-21 07:46] LABS: Basophils # 0.1 K/mm3 (0-0.2); Basophils % 0.7 % (0.1-2.0); Eosinophils # 0.1 K/mm3 (0.0-0.4); Eosinophils % 0.4 % (0.1-12.0); Hematocrit 38.1 % (42.0-52.0); Hemoglobin 11.8 g/dL (14.1-18.0); Lymphocytes # 0.9 K/mm3 (0.7-4.5); Lymphocytes % 5.1 % (10-50); Mean Corpuscular HGB Conc 31.1 g/dL (31.8-35.4); Mean Corpuscular Volume 89.2 fl (80-94); Mean Platelet Volume 8.6 fl (7.4-10.4); Monocytes # 1.2 K/mm3 (0.1-1.0); Monocytes % 6.8 % (1.7-9.3); Neutrophils % 87.1 % (37.0-80.0); Platelet Count 80 K/mm3 (142-424); Red Blood Count 4.27 M/mm3 (4.60-6.20); Red Cell Distribution Width 17.9 % (11.5-17.5); White Blood Count 18.3 K/mm3 (4.8-10.8)
--- NOTE | 2020-01-21 07:47 | Progress Note ---
Subjective Date: 01/21/20 Time: 07:44 Principal diagnosis: A. fib Interval history: 59 yo WM in bed in NAD. More alert and interactive today but still slow to respond to questions. Breathing comfortably until questioned then begins to force expiration (unchanged from yesterday). Telemetry is sinus and controlled rate. Labs being drawn at this time. Intake is net positive >10 liters without signs of significant edema. Exam Vital signs and Labs for Last 24 Hours: Temp Pulse Resp BP Pulse Ox 97.5 F L 78 17 113/69 92 L 01/21/20 00:00 01/21/20 06:26 01/21/20 00:00 01/21/20 06:09 01/21/20 06:26 Laboratory Results - last 24 hr 01/20/20 06:20: Total Counted 100, Neutrophils % (Manual) 78 H, Lymphocytes % (Manual) 12, Monocytes % (Manual) 10 H, Platelet Estimate Slight decrease, RBC Morphology Not Reportable, Hypochromasia 1+ 01/20/20 08:24: Specimen Source Left radial, O2 % 32% nc, ABG pH 7.41, ABG pCO2 26.4 L, ABG pO2 46.8 L, ABG HCO3 16.4 L, ABG Total CO2 17.2 L, ABG O2 Saturation 81 L*, ABG Base Excess -8.3 L, Prasanth Test Patient unable I & O for Last 24 hours: Intake & Output 01/18/20 01/19/20 01/20/20 01/21/20 11:59 11:59 11:59 11:59 Intake Total 5088 / 5088 4701 / 4701 2981 / 2981 3075 / 3075 Output Total 1100 / 1100 475 / 475 Balance 3988 / 3988 4701 / 4701 2980 / 2980 2600 / 2600 Weight 167 lb 6 oz 178 lb 6 oz 183 lb 8 oz 180 lb 3 oz - *Routine Respiratory Exam Present: rhonchi - *Routine Cardiovascular Exam Present: RRR. Absent: murmur, gallop, rubs - *Routine Neurological Exam Present: alert, moving all extremities Progress Note: A&P (1) BROCK (acute kidney injury) Status: Acute Current Visit: Yes (2) HCAP (healthcare-associated pneumonia) Status: Acute Current Visit: Yes (3) Atrial fibrillation with rapid ventricular response Status: Acute Current Visit: Yes (4) Severe sepsis with acute organ dysfunction Status: Acute Current Visit: Yes (5) Septic shock Status: Acute Current Visit: Yes (6) History of nephrectomy Status: Acute Current Visit: Yes Assessment and Plan for All Diagnoses:: 1. Echo not performed yesterday due to pt non-compliance. Will try again today but expect similar results. 2. PAF, in NSR on inderal 20 mg TID. CHADS score of 1, ASA only. 3. Sepsis with pneumonia, on antibiotics 4. BROCK, improved on IVF
[2020-01-21 07:56] LABS: Anion Gap 8.5 mEq/L (5-15); Calcium 8.2 mg/dl (8.4-10.2)
[2020-01-21 08:06] LABS: Lymphocytes % 13 % (10-50); Monocytes % 4 % (2-9); Myelocytes % 1 (0-1); Neutrophils % 79 % (42-76); Total Cells Counted 100
[2020-01-21 08:07] LABS: Anisocytosis 1+; Hypochromasia 1+; Stomatocytes 2+
[2020-01-21 08:56] LABS: ABG Base Excess -5.1 mmol/L (-2.4-2.3); ABG HCO3 17.7 mmhg (22.0-26.0); ABG Oxygen Saturation 87 % (90-100); ABG PCO2 22.2 mmhg (35.0-45.0); ABG PH 7.52 mmol/L (7.35-7.45); ABG PO2 51.1 mmhg (80-100); ABG TCO2 18.4 mmhg (23-27)
[2020-01-21 08:59] LABS: Oxygen 3LPM %
--- NOTE | 2020-01-21 09:00 | Progress Note ---
Internal Medicine - PN: Subj *Date: 01/21/20 *Time: 09:18 Interval history: 59-year-old male sitting up in bed resting quietly, O2 at 1 L per nasal cannula. Exam Vital signs and Labs for Last 24 Hours: Temp Pulse Resp BP Pulse Ox 97.2 F L 78 17 113/69 92 L 01/21/20 07:49 01/21/20 06:26 01/21/20 00:00 01/21/20 06:09 01/21/20 06:26 Laboratory Results - last 24 hr 01/20/20 08:24: Specimen Source Left radial, O2 % 32% nc, ABG pH 7.41, ABG pCO2 26.4 L, ABG pO2 46.8 L, ABG HCO3 16.4 L, ABG Total CO2 17.2 L, ABG O2 Saturation 81 L*, ABG Base Excess -8.3 L, Prasanth Test Patient unable 01/21/20 07:35: WBC 18.3 H, RBC 4.27 L, Hgb 11.8 L, Hct 38.1 L, MCV 89.2, MCH 27.8, MCHC 31.1 L, RDW 17.9 H, Plt Count 80 L D, MPV 8.6, Neut % (Auto) 87.1 H, Lymph % (Auto) 5.1 L, [place] % (Auto) 6.8, Eos % (Auto) 0.4, Baso % (Auto) 0.7, Neut # (Auto) 16.0 H, Lymph # (Auto) 0.9, [place] # (Auto) 1.2 H, Eos # (Auto) 0.1, Baso # (Auto) 0.1, Total Counted 100, Neutrophils % (Manual) 79 H, Band Neutrophils % 2.0, Lymphocytes % (Manual) 13, Monocytes % (Manual) 4, Metamyelocytes % 1.0, Myelocytes % 1, Platelet Estimate Moderate decrease, Hypochromasia 1+, Poikilocytosis 1+, Anisocytosis 1+, Stomatocytes 2+, Acanthocytes (Spur) 1+, Schistocytes 1+ 01/21/20 07:35: Sodium 147 H, Potassium 3.5, Chloride 119 H, Carbon Dioxide 23, Anion Gap 8.5, BUN 49 H, Creatinine 1.20, Estimated Creat Clear 79, Estimated GFR 62, Est GFR ( Amer) 76 D, Glucose 73 L, Calcium 8.2 L I & O for Last 24 hours: Intake & Output 01/18/20 01/19/20 01/20/20 01/21/20 23:59 23:59 23:59 23:59 Intake Total 7539 / 7539 3261 / 3261 1970 / 1970 3435 / 3435 Output Total 1100 / 1100 476 / 476 Balance 6439 / 6439 3261 / 3261 1494 / 1494 3435 / 3435 Weight 167 lb 6 oz 178 lb 6 oz 183 lb 8 oz 180 lb 3 oz - Constitutional no acute distress - *Routine HEENT Exam Head: Present: normocephalic, atraumatic Eye: Present: EOMI, normal accommodation ENT: Present: mucous membranes dry - *Routine Neck Exam Present: full ROM. Absent: JVD Comments: R Neck w/ soft grape sized nodule - *Routine Respiratory Exam Present: rhonchi. Absent: accessory muscle use - *Routine Cardiovascular Exam Present: RRR - *Routine Abdominal Exam Present: soft, normoactive bowel sounds. Absent: firm - *Routine Extremities Exam Present: full ROM, pulses intact. Absent: calf tenderness - Routine Back/Spine/Pelvis Exam Back/Spine: Present: full ROM. Absent: CVA tenderness - *Routine Skin Exam Present: erythema Comments: Bilat groin, buttocks - *Routine Neurological Exam Present: alert - Routine Psychiatric Exam Present: unable to assess Assessment and Plan (1) BROCK (acute kidney injury) Current visit: Yes Status: Acute Category: Medical Code(s): N17.9 - Acute kidney failure, unspecified (2) HCAP (healthcare-associated pneumonia) Current visit: Yes Status: Acute Category: Medical Code(s): J18.9 - Pneumonia, unspecified organism (3) Atrial fibrillation with rapid ventricular response Current visit: Yes Status: Acute Category: Medical Code(s): I48.91 - Unspecified atrial fibrillation (4) Severe sepsis with acute organ dysfunction Current visit: Yes Status: Acute Category: Medical Code(s): A41.9 - Sepsis, unspecified organism; R65.20 - Severe sepsis without septic shock (5) Septic shock Current visit: Yes Status: Acute Category: Medical Code(s): A41.9 - Sepsis, unspecified organism; R65.21 - Severe sepsis with septic shock (6) History of nephrectomy Current visit: Yes Status: Acute Category: Surgical Code(s): Z90.5 - Acquired absence of kidney - Assessment and plan all Dx Assessment and Plan for all problems:: Rounded with Dr. Schmitt, all orders per Dr. Schmitt 1. ABG this morning 2. ECHO this A.M. 3. BROCK improved with fluids The patient's infection will respond to the chosen ABx?: Yes Is the patient receiving the right drug, dose, and route?: Yes Could a more targeted ABx be ordered?: No
--- NOTE | 2020-01-21 09:46 | Progress Note ---
Internal Medicine - PN: Subj *Date: 01/21/20 *Time: 09:46 Exam Vital signs and Labs for Last 24 Hours: Temp Pulse Resp BP Pulse Ox 97.2 F L 78 17 113/69 92 L 01/21/20 07:49 01/21/20 06:26 01/21/20 00:00 01/21/20 06:09 01/21/20 06:26 Laboratory Results - last 24 hr 01/20/20 08:24: Specimen Source Left radial, O2 % 32% nc, ABG pH 7.41, ABG pCO2 26.4 L, ABG pO2 46.8 L, ABG HCO3 16.4 L, ABG Total CO2 17.2 L, ABG O2 Saturation 81 L*, ABG Base Excess -8.3 L, Prasanth Test Patient unable 01/21/20 07:35: WBC 18.3 H, RBC 4.27 L, Hgb 11.8 L, Hct 38.1 L, MCV 89.2, MCH 27.8, MCHC 31.1 L, RDW 17.9 H, Plt Count 80 L D, MPV 8.6, Neut % (Auto) 87.1 H, Lymph % (Auto) 5.1 L, [place] % (Auto) 6.8, Eos % (Auto) 0.4, Baso % (Auto) 0.7, Neut # (Auto) 16.0 H, Lymph # (Auto) 0.9, [place] # (Auto) 1.2 H, Eos # (Auto) 0.1, Baso # (Auto) 0.1, Total Counted 100, Neutrophils % (Manual) 79 H, Band Neutrophils % 2.0, Lymphocytes % (Manual) 13, Monocytes % (Manual) 4, Metamyelocytes % 1.0, Myelocytes % 1, Platelet Estimate Moderate decrease, Hypochromasia 1+, Poikilocytosis 1+, Anisocytosis 1+, Stomatocytes 2+, Acanthocytes (Spur) 1+, Schistocytes 1+ 01/21/20 07:35: Sodium 147 H, Potassium 3.5, Chloride 119 H, Carbon Dioxide 23, Anion Gap 8.5, BUN 49 H, Creatinine 1.20, Estimated Creat Clear 79, Estimated GFR 62, Est GFR ( Amer) 76 D, Glucose 73 L, Calcium 8.2 L 01/21/20 08:54: Specimen Source R femoral, O2 % 3lpm, ABG pH 7.52 H, ABG pCO2 22.2 L, ABG pO2 51.1 L, ABG HCO3 17.7 L, ABG Total CO2 18.4 L, ABG O2 Saturation 87 L*, ABG Base Excess -5.1 L I & O for Last 24 hours: Intake & Output 01/18/20 01/19/20 01/20/20 01/21/20 23:59 23:59 23:59 23:59 Intake Total 7539 / 7539 3261 / 3261 2120 / 2120 3435 / 3435 Output Total 1100 / 1100 476 / 476 Balance 6439 / 6439 3261 / 3261 1644 / 1644 3435 / 3435 Weight 75.92 kg 80.91 kg 83.234 kg 81.732 kg Assessment and Plan (1) BROCK (acute kidney injury) Current visit: Yes Status: Acute Category: Medical Code(s): N17.9 - Acute kidney failure, unspecified (2) HCAP (healthcare-associated pneumonia) Current visit: Yes Status: Acute Category: Medical Code(s): J18.9 - Pneumonia, unspecified organism (3) Atrial fibrillation with rapid ventricular response Current visit: Yes Status: Acute Category: Medical Code(s): I48.91 - Unspecified atrial fibrillation (4) Severe sepsis with acute organ dysfunction Current visit: Yes Status: Acute Category: Medical Code(s): A41.9 - Sepsis, unspecified organism; R65.20 - Severe sepsis without septic shock (5) Septic shock Current visit: Yes Status: Acute Category: Medical Code(s): A41.9 - Sepsis, unspecified organism; R65.21 - Severe sepsis with septic shock (6) History of nephrectomy Current visit: Yes Status: Acute Category: Surgical Code(s): Z90.5 - Acquired absence of kidney The patient's infection will respond to the chosen ABx?: Yes Is the patient receiving the right drug, dose, and route?: Yes Could a more targeted ABx be ordered?: No (BLOOD CX NEGATIVE. C DIFF INFECTION. PATIENT UNABLE TO PRODUCE SPUTUM)
--- NOTE | 2020-01-21 19:50 | Cardiology Report ---
APPROVED REPORT EXAM: Limited 2D Echocardiogram Manager Technical: Suki Liu RVT Ht: 5 ft 10 in Wt: 183lbs BSA: 2.01 BP: 123/64 mmHg Indications: CHF,A-fib,Septic, Pneumonia, Traumatic brain injury, COPD,Smoker,HLD,GERD 2D Dimensions IVSd 1.31 cm M: 0.6-1.2 PWd 1.31 cm M: 0.6 - 1.2 LVDd 3.75 cm M: 4.2 - 5.9 M-Mode Dimensions LVDd 3.75 cm (3.5-5.7)IVSd 1.31 cm (0.6-1.1) PWd 1.31 cm (0.6-1.1) Left Ventricle Technically very limited study, endocardial surfaces as well as the valvular structures are very poorly visualized. Probably preserved left ventricular systolic function. Right Ventricle Right atrium and right ventricle mildly enlarged with normal contractility Aortic Valve Aortic valve is poorly visualized Mitral Valve Mitral valve is poorly visualized. Tricuspid Valve Tricuspid valve is poorly visualized. Pulmonic Valve Pulmonic valve is poorly visualized. Great Vessels Aortic root is not seen Pericardium No significant pericardial effusion noted Conclusion 1. Technically very difficult and poor study, endocardial surfaces as well as the valvular structures are very poorly visualized 2. Probably preserved left ventricular systolic function 3. No significant pericardial effusion noted. Electronically signed by : Vikram Cabral, 01/21/2020 19:49:37
[2020-01-22 01:18] LABS: Basophils # 0.1 K/mm3 (0-0.2); Basophils % 0.5 % (0.1-2.0); Eosinophils % 0.1 % (0.1-12.0); Hematocrit 38.6 % (42.0-52.0); Hemoglobin 12.1 g/dL (14.1-18.0); Lymphocytes # 0.9 K/mm3 (0.7-4.5); Lymphocytes % 4.1 % (10-50); Mean Corpuscular HGB Conc 31.3 g/dL (31.8-35.4); Mean Platelet Volume 9.6 fl (7.4-10.4); Monocytes # 0.9 K/mm3 (0.1-1.0); Monocytes % 4.2 % (1.7-9.3); Neutrophils # 19.3 K/mm3 (1.8-7.8); Neutrophils % 91.1 % (37.0-80.0); Platelet Count 73 K/mm3 (142-424); Red Blood Count 4.34 M/mm3 (4.60-6.20); White Blood Count 21.2 K/mm3 (4.8-10.8)
[2020-01-22 01:26] LABS: Anion Gap 8.8 mEq/L (5-15); Calcium 8.3 mg/dl (8.4-10.2)
[2020-01-22 02:30] LABS: Lymphocytes % 9 % (10-50); Neutrophils % 91 % (42-76); Total Cells Counted 100
[2020-01-22 02:31] LABS: Ovalocytes 1+
[2020-01-22 06:18] LABS: Basophils # 0.2 K/mm3 (0-0.2); Basophils % 0.9 % (0.1-2.0); Hemoglobin 11.6 g/dL (14.1-18.0); Lymphocytes # 1.1 K/mm3 (0.7-4.5); Lymphocytes % 4.5 % (10-50); Mean Corpuscular HGB Conc 31.3 g/dL (31.8-35.4); Mean Corpuscular Volume 89.3 fl (80-94); Monocytes # 1.3 K/mm3 (0.1-1.0); Monocytes % 5.4 % (1.7-9.3); Neutrophils # 21.6 K/mm3 (1.8-7.8); Neutrophils % 89.1 % (37.0-80.0); Platelet Count 78 K/mm3 (142-424); Red Blood Count 4.14 M/mm3 (4.60-6.20); Red Cell Distribution Width 18.1 % (11.5-17.5); White Blood Count 24.3 K/mm3 (4.8-10.8)
[2020-01-22 06:24] LABS: Anion Gap 10.9 mEq/L (5-15); Calcium 8.2 mg/dl (8.4-10.2)
--- NOTE | 2020-01-22 08:38 | Progress Note ---
Internal Medicine - PN: Subj *Date: 01/22/20 *Time: 08:40 Interval history: 59-year-old male patient sleeping in bed quietly, awakens easily denies any problems. From swallow completed yesterday awaiting results. Sputum culture obtained awaiting results, blood cultures no growth 01/21/[address]: IMPRESSION: 1. No evidence of pulmonary embolus. 2. Progressive bilateral pneumonia with bilateral effusions 3. Extensive thickening of the hepatic flexure consistent with colitis with upper abdominal ascites. Dictated by: Dr. Johnston, Exam Vital signs and Labs for Last 24 Hours: Temp Pulse Resp BP Pulse Ox 98.0 F 63 18 96/60 L 96 01/22/20 04:00 01/22/20 08:00 01/22/20 08:00 01/22/20 08:00 01/22/20 08:00 Laboratory Results - last 24 hr 01/21/20 08:54: Specimen Source R femoral, O2 % 3lpm, ABG pH 7.52 H, ABG pCO2 22.2 L, ABG pO2 51.1 L, ABG HCO3 17.7 L, ABG Total CO2 18.4 L, ABG O2 Saturation 87 L*, ABG Base Excess -5.1 L 01/22/20 00:48: POC Glucose 95 01/22/20 01:10: WBC 21.2 H*, RBC 4.34 L, Hgb 12.1 L, Hct 38.6 L, MCV 89.0, MCH 27.9, MCHC 31.3 L, RDW 18.0 H, Plt Count 73 L, MPV 9.6, Neut % (Auto) 91.1 H, Lymph % (Auto) 4.1 L, [place] % (Auto) 4.2, Eos % (Auto) 0.1, Baso % (Auto) 0.5, Neut # (Auto) 19.3 H, Lymph # (Auto) 0.9, [place] # (Auto) 0.9, Eos # (Auto) 0.0, Baso # (Auto) 0.1, Total Counted 100, Neutrophils % (Manual) 91 H, Lymphocytes % (Manual) 9 L, Platelet Estimate Moderate decrease, Ovalocytes 1+, Acanthocytes (Spur) 1+ 01/22/20 01:10: Sodium 148 H, Potassium 2.8 L*, Chloride 117 H, Carbon Dioxide 25, Anion Gap 8.8, BUN 48 H, Creatinine 1.20, Estimated Creat Clear 79, Es timated GFR 62, Est GFR ( Amer) 76, Glucose 91 D, Calcium 8.3 L 01/22/20 05:45: WBC 24.3 H*, RBC 4.14 L, Hgb 11.6 L, Hct 37.0 L, MCV 89.3, MCH 28.0, MCHC 31.3 L, RDW 18.1 H, Plt Count 78 L, MPV 9.0, Neut % (Auto) 89.1 H, Lymph % (Auto) 4.5 L, [place] % (Auto) 5.4, Eos % (Auto) 0.0 L, Baso % (Auto) 0.9, Neut # (Auto) 21.6 H, Lymph # (Auto) 1.1, [place] # (Auto) 1.3 H, Eos # (Auto) 0.0, Baso # (Auto) 0.2 01/22/20 05:45: Sodium 150 H, Potassium 3.9 D, Chloride 120 H, Carbon Dioxide 23, Anion Gap 10.9, BUN 48 H, Creatinine 1.20, Estimated Creat Clear 80, Estimated GFR 62, Est GFR ( Amer) 76, Glucose 93, Calcium 8.2 L I & O for Last 24 hours: Intake & Output 01/19/20 01/20/20 01/21/20 01/22/20 23:59 23:59 23:59 23:59 Intake Total 3261 / 3261 2120 / 2120 3555 / 3555 2903.667 / 2903.667 Output Total 476 / 476 2600 / 3400 1050 / 1050 Balance 3261 / 3261 1644 / 1644 955 / 155 1853.667 / 1853.667 Weight 178 lb 6 oz 183 lb 8 oz 180 lb 3 oz 184 lb 5 oz Microbiology Reports for the Last 24 Hours: Microbiology 01/21/20 15:15 Sputum - Expectorated Sputum Gram Stain - Final - Constitutional no acute distress - *Routine HEENT Exam Head: Present: normocephalic, atraumatic Eye: Present: EOMI ENT: Present: mucous membranes dry - *Routine Neck Exam Present: supple, full ROM. Absent: JVD Comments: R Neck w/ soft grape sized nodule - *Routine Respiratory Exam Present: rhonchi. Absent: accessory muscle use - *Routine Cardiovascular Exam Present: RRR - *Routine Abdominal Exam Present: soft, normoactive bowel sounds. Absent: tenderness - *Routine Extremities Exam Present: full ROM, pulses intact. Absent: calf tenderness - Routine Back/Spine/Pelvis Exam Back/Spine: Present: full ROM. Absent: CVA tenderness - *Routine Skin Exam Present: erythema, rash Comments: Bilat groin and buttocks - *Routine Neurological Exam Present: alert, normal reflexes, altered mental status. Absent: oriented X3 Assessment and Plan (1) BROCK (acute kidney injury) Current visit: Yes Status: Acute Category: Medical Code(s): N17.9 - Acute kidney failure, unspecified (2) HCAP (healthcare-associated pneumonia) Current visit: Yes Status: Acute Category: Medical Code(s): J18.9 - Pneumonia, unspecified organism (3) Atrial fibrillation with rapid ventricular response Current visit: Yes Status: Acute Category: Medical Code(s): I48.91 - Unspecified atrial fibrillation (4) Severe sepsis with acute organ dysfunction Current visit: Yes Status: Acute Category: Medical Code(s): A41.9 - Sepsis, unspecified organism; R65.20 - Severe sepsis without septic shock (5) Septic shock Current visit: Yes Status: Acute Category: Medical Code(s): A41.9 - Sepsis, unspecified organism; R65.21 - Severe sepsis with septic shock (6) History of nephrectomy Current visit: Yes Status: Acute Category: Surgical Code(s): Z90.5 - Acquired absence of kidney - Assessment and plan all Dx Assessment and Plan for all problems:: Rounds completed, Dr. Schmitt will see this afternoon 1. Awaiting sputum culture
--- NOTE | 2020-01-22 09:24 | Progress Note ---
Subjective Date: 01/22/20 Time: 09:24 Principal diagnosis: A. fib Interval history: This is a 59-year-old white male who is lying in bed with no acute distress noted. The patient is somewhat lethargic today. He is not answering any of my questions. He is trying to come up with answers but he is unable to get anything out. I am unable to do a review of systems because he is not answering any of my questions this morning. He appears to be in no distress. He remains in sinus rhythm on telemetry. Yesterday his serum osmolality and a urine osmolality were obtained. We are still awaiting results as these are send out labs. The patient was switched over to half-normal saline yesterday secondary to concerns of diabetes insipidus. We are still waiting on labs to confirm this. No fevers have been documented overnight. No signs of edema. Sodium remains elevated this morning as well as his BUN. He still has a normal creatinine. Exam Vital signs and Labs for Last 24 Hours: Temp Pulse Resp BP Pulse Ox 98.5 F 63 18 96/60 L 96 01/22/20 08:00 01/22/20 08:00 01/22/20 08:00 01/22/20 08:00 01/22/20 08:00 Laboratory Results - last 24 hr 01/22/20 00:48: POC Glucose 95 01/22/20 01:10: WBC 21.2 H*, RBC 4.34 L, Hgb 12.1 L, Hct 38.6 L, MCV 89.0, MCH 27.9, MCHC 31.3 L, RDW 18.0 H, Plt Count 73 L, MPV 9.6, Neut % (Auto) 91.1 H, Lymph % (Auto) 4.1 L, [place] % (Auto) 4.2, Eos % (Auto) 0.1, Baso % (Auto) 0.5, Neut # (Auto) 19.3 H, Lymph # (Auto) 0.9, [place] # (Auto) 0.9, Eos # (Auto) 0.0, Baso # (Auto) 0.1, Total Counted 100, Neutrophils % (Manual) 91 H, Lymphocytes % (Manual) 9 L, Platelet Estimate Moderate decrease, Ovalocytes 1+, Acanthocytes (Spur) 1+ 01/22/20 01:10: Sodium 148 H, Potassium 2.8 L*, Chloride 117 H, Carbon Dioxide 25, Anion Gap 8.8, BUN 48 H, Creatinine 1.20, Estimated Creat Clear 79, Estimated GFR 62, Est GFR ( Amer) 76, Glucose 91 D, Calcium 8.3 L 01/22/20 05:45: WBC 24.3 H*, RBC 4.14 L, Hgb 11.6 L, Hct 37.0 L, MCV 89.3, MCH 28.0, MCHC 31.3 L, RDW 18.1 H, Plt Count 78 L, MPV 9.0, Neut % (Auto) 89.1 H, Lymph % (Auto) 4.5 L, [place] % (Auto) 5.4, Eos % (Auto) 0.0 L, Baso % (Auto) 0.9, Neut # (Auto) 21.6 H, Lymph # (Auto) 1.1, [place] # (Auto) 1.3 H, Eos # (Auto) 0.0, Baso # (Auto) 0.2 01/22/20 05:45: Sodium 150 H, Potassium 3.9 D, Chloride 120 H, Carbon Dioxide 23, Anion Gap 10.9, BUN 48 H, Creatinine 1.20, Estimated Creat Clear 80, Estimated GFR 62, Est GFR ( Amer) 76, Glucose 93, Calcium 8.2 L I & O for Last 24 hours: Intake & Output 01/19/20 01/20/20 01/21/20 01/22/20 23:59 23:59 23:59 23:59 Intake Total 3261 / 3261 2120 / 2120 3705 / 3705 2903.667 / 2903.667 Output Total 476 / 476 2600 / 3400 1050 / 1050 Balance 3261 / 3261 1644 / 1644 1105 / 305 1853.667 / 1853.667 Weight 178 lb 6 oz 183 lb 8 oz 180 lb 3 oz 184 lb 5 oz Microbiology Reports for the Last 24 Hours: Microbiology 01/21/20 15:15 Sputum - Expectorated Sputum Gram Stain - Final Narrative: Telemetry strip is sinus rhythm with a rate of 61. CT chest shows: 1. No evidence of pulmonary embolus. 2. Progressive bilateral pneumonia with bilateral effusions 3. Extensive thickening of the hepatic flexure consistent with colitis with upper abdominal ascites. . Echo shows: 1. Technically very difficult and poor study, endocardial surfaces as well as the valvular structures are very poorly visualized 2. Probably preserved left ventricular systolic function 3. No significant pericardial effusion noted. - Constitutional no acute distress, average body habitus - *Routine HEENT Exam Head: Present: normocephalic, atraumatic Eye: Present: EOMI, PERRL ENT: Present: mucous membranes moist - *Routine Neck Exam Present: supple, full ROM, normal carotid upstroke. Absent: JVD, carotid bruit, lymphadenopathy - *Routine Respiratory Exam Present: CTA bilaterally - *Routine Cardiovascular Exam Present: RRR, Normal S1, Normal S2. Absent: murmur - *Routine Abdominal Exam Present: soft, normoactive bowel sounds. Absent: tenderness, distended - *Routine Extremities Exam Present: full ROM, pulses intact, normal capillary refill. Absent: cyanosis, clubbing, edema - *Routine Skin Exam Present: intact, warm. Absent: erythema, rash - *Routine Neurological Exam Present: alert, altered mental status, moving all extremities - Detailed Eye Exam Eyelids: Left normal inspection Progress Note: A&P (1) Diabetes insipidus Status: Suspected Current Visit: Yes (2) Atrial fibrillation with rapid ventricular response Status: Acute Current Visit: Yes (3) BROCK (acute kidney injury) Status: Acute Current Visit: Yes (4) HCAP (healthcare-associated pneumonia) Status: Acute Current Visit: Yes (5) Severe sepsis with acute organ dysfunction Status: Acute Current Visit: Yes (6) Septic shock Status: Acute Current Visit: Yes (7) History of nephrectomy Status: Acute Current Visit: Yes (8) History of traumatic brain injury Status: Chronic Current Visit: Yes (9) Hypernatremia Status: Acute Current Visit: Yes Assessment and Plan for All Diagnoses:: Plan: 1. The patient was started on half-normal saline yesterday secondary to presumed diabetes insipidus by Dr. Aleman. His sodium is a little higher today at 150. His creatinine remains normal and his BUN is elevated at 48. Still awaiting the results of his serum osmolality and urine osmolality to confirm the diabetes insipidus. However given his persistently high sodium level, Dr. Aleman wants to increase the half-normal saline to 250 mL an hour for the next 6 hours to treat the presumed diabetes insipidus. 2. We will repeat a BMP in 6 hours after having the increased right of the half-normal saline. 3. If diabetes insipidus is confirmed with a urine osmolality and serum osmolality then the patient will most likely need to be treated with DDAVP. 4. Paroxysmal atrial fibrillation is sinus rhythm at this time. He is on Inderal 3 times daily. His chads vasc score is only 1. Recommend aspirin only. 5. His echocardiogram was a technically difficult study, EF is likely preserved. 6. CT of his chest did show progressive pneumonia bilaterally. He also has some sepsis. On antibiotics. Will defer to his primary care provider. 7. His blood pressure is acceptable. 8. LDL goal is less than 100. 9. Further recommendations will be made pending the patient's response to treatment and the results of his BMP later today. Thank you for the opportunity to help participate in the care of this patient.
[2020-01-22 16:47] LABS: Anion Gap 13.1 mEq/L (5-15); Calcium 8.2 mg/dl (8.4-10.2)
[2020-01-23 06:06] LABS: Basophils # 0.2 K/mm3 (0-0.2); Basophils % 0.6 % (0.1-2.0); Eosinophils % 0.1 % (0.1-12.0); Hematocrit 37.1 % (42.0-52.0); Hemoglobin 11.5 g/dL (14.1-18.0); Lymphocytes % 3.8 % (10-50); Mean Corpuscular HGB Conc 31.2 g/dL (31.8-35.4); Mean Corpuscular Volume 89.2 fl (80-94); Mean Platelet Volume 8.9 fl (7.4-10.4); Monocytes # 1.7 K/mm3 (0.1-1.0); Monocytes % 6.2 % (1.7-9.3); Neutrophils # 24.1 K/mm3 (1.8-7.8); Neutrophils % 89.2 % (37.0-80.0); Platelet Count 81 K/mm3 (142-424); Red Blood Count 4.15 M/mm3 (4.60-6.20); Red Cell Distribution Width 18.1 % (11.5-17.5)
[2020-01-23 06:21] LABS: Anion Gap 11.9 mEq/L (5-15); Calcium 8.1 mg/dl (8.4-10.2)
--- NOTE | 2020-01-23 08:42 | Progress Note ---
Subjective Date: 01/23/20 Time: 08:38 Principal diagnosis: A. fib Interval history: 59 yo WM in bed in NAD. More alert and interactive than Monday when I last saw him. Denies any chest pain or abdominal pain. Breathing comfortably. Follows simple commands but still does not answer questions. Exam Vital signs and Labs for Last 24 Hours: Temp Pulse Resp BP Pulse Ox 97.2 F L 80 20 111/58 L 92 L 01/23/20 07:53 01/23/20 06:25 01/23/20 06:00 01/23/20 06:00 01/23/20 06:25 Laboratory Results - last 24 hr 01/22/20 16:30: Sodium 146 H, Potassium 3.1 L D, Chloride 114 H, Carbon Dioxide 22, Anion Gap 13.1, BUN 47 H, Creatinine 1.20, Estimated Creat Clear 80, Estimated GFR 62, Est GFR ( Amer) 76, Glucose 77, Calcium 8.2 L 01/23/20 05:45: WBC 27.0 H*, RBC 4.15 L, Hgb 11.5 L, Hct 37.1 L, MCV 89.2, MCH 27.8, MCHC 31.2 L, RDW 18.1 H, Plt Count 81 L, MPV 8.9, Neut % (Auto) 89.2 H, [place] % (Auto) 3.8 L, [place] % (Auto) 6.2, Eos % (Auto) 0.1, Baso % (Auto) 0.6, Neut # (Auto) 24.1 H, Lymph # (Auto) 1.0, [place] # (Auto) 1.7 H, Eos # (Auto) 0.0, Baso # (Auto) 0.2 01/23/20 05:45: Sodium 145, Potassium 3.9 D, Chloride 117 H, Carbon Dioxide 20 L, Anion Gap 11.9, BUN 49 H, Creatinine 1.10, Estimated Creat Clear 90, Estimated GFR 69, Est GFR ( Amer) 83, Glucose 74, Calcium 8.1 L I & O for Last 24 hours: Intake & Output 01/20/20 01/21/20 01/22/20 01/23/20 11:59 11:59 11:59 11:59 Intake Total 3131 / 3131 3585 / 3585 3023.667 / 3023.667 5696 / 5696 Output Total 475 / 475 3650 / 3650 Balance 3130 / 3130 3110 / 3110 -626.333 / -531.647 9946 / 5696 Weight 183 lb 8 oz 180 lb 3 oz 184 lb 5 oz 188 lb 9 oz Microbiology Reports for the Last 24 Hours: Microbiology 01/21/20 15:15 Sputum - Expectorated Sputum Gram Stain - Final 01/21/20 15:15 Sputum - Expectorated Sputum Sputum Culture - Preliminary 01/17/20 21:40 Blood Blood Culture - Final NO GROWTH AFTER 5 DAYS 01/17/20 21:40 Blood Blood Culture - Final NO GROWTH AFTER 5 DAYS - *Routine HEENT Exam Head: Present: normocephalic Eye: Present: EOMI, PERRL ENT: Present: mucous membranes moist - *Routine Respiratory Exam Present: decreased breath sounds, CTA bilaterally. Absent: accessory muscle use, rales, rhonchi, wheezes - *Routine Cardiovascular Exam Present: RRR. Absent: murmur, gallop, rubs - *Routine Abdominal Exam Present: soft. Absent: tenderness, distended, guarding - *Routine Extremities Exam Present: edema. Absent: calf tenderness - *Routine Neurological Exam Present: alert, moving all extremities Progress Note: A&P (1) Diabetes insipidus Status: Suspected Current Visit: Yes (2) Atrial fibrillation with rapid ventricular response Status: Acute Current Visit: Yes (3) BROCK (acute kidney injury) Status: Acute Current Visit: Yes (4) HCAP (healthcare-associated pneumonia) Status: Acute Current Visit: Yes (5) Severe sepsis with acute organ dysfunction Status: Acute Current Visit: Yes (6) Septic shock Status: Acute Current Visit: Yes (7) History of nephrectomy Status: Acute Current Visit: Yes (8) History of traumatic brain injury Status: Chronic Current Visit: Yes Assessment and Plan for All Diagnoses:: 1. Sepsis/recurrent pneumonia due to aspiration, on multiple antibiotics. Steroids (which likely exacerbated the elevated WBC) discontinued last night. Pt refuses to comply with modified diet. 2. PAF, maintaining NSR on BB therapy. CHADS2 score of 1, no a/c recommend other than ASA. 3. Possible diabetes insipidus related to history of brain trauma. Serum and urine osmolality pending. Consider DDAVP if confirmed. Na and K normal today. Getting 1/2 normal saline. 4. History of nephrectomy. Creatinine normal. 5. Mild anemia, stable 6. Thrombocytopenia, stable at around 70-80K at this time. 7. HLD, on statin therapy.
--- NOTE | 2020-01-23 08:57 | Progress Note ---
Internal Medicine - PN: Subj *Date: 01/23/20 *Time: 08:54 Interval history: Patient sitting up in bed refusing to eat modified diet Exam Vital signs and Labs for Last 24 Hours: Temp Pulse Resp BP Pulse Ox 97.2 F L 80 20 111/58 L 92 L 01/23/20 07:53 01/23/20 06:25 01/23/20 06:00 01/23/20 06:00 01/23/20 06:25 Laboratory Results - last 24 hr 01/22/20 16:30: Sodium 146 H, Potassium 3.1 L D, Chloride 114 H, Carbon Dioxide 22, Anion Gap 13.1, BUN 47 H, Creatinine 1.20, Estimated Creat Clear 80, Estimated GFR 62, Est GFR ( Amer) 76, Glucose 77, Calcium 8.2 L 01/23/20 05:45: WBC 27.0 H*, RBC 4.15 L, Hgb 11.5 L, Hct 37.1 L, MCV 89.2, MCH 27.8, MCHC 31.2 L, RDW 18.1 H, Plt Count 81 L, MPV 8.9, Neut % (Auto) 89.2 H, Lymph % (Auto) 3.8 L, [place] % (Auto) 6.2, Eos % (Auto) 0.1, Baso % (Auto) 0.6, Neut # (Auto) 24.1 H, Lymph # (Auto) 1.0, [place] # (Auto) 1.7 H, Eos # (Auto) 0.0, Baso # (Auto) 0.2 01/23/20 05:45: Sodium 145, Potassium 3.9 D, Chloride 117 H, Carbon Dioxide 20 L, Anion Gap 11.9, BUN 49 H, Creatinine 1.10, Estimated Creat Clear 90, Estimated GFR 69, Est GFR ( Amer) 83, Glucose 74, Calcium 8.1 L I & O for Last 24 hours: Intake & Output 01/20/20 01/21/20 01/22/20 01/23/20 11:59 11:59 11:59 11:59 Intake Total 3131 / 3131 3585 / 3585 3023.667 / 3023.667 5696 / 5696 Output Total 475 / 475 3650 / 3650 Balance 3130 / 3130 3110 / 3110 -626.333 / -740.531 2516 / 5696 Weight 183 lb 8 oz 180 lb 3 oz 184 lb 5 oz 188 lb 9 oz Microbiology Reports for the Last 24 Hours: Microbiology 01/21/20 15:15 Sputum - Expectorated Sputum Gram Stain - Final 01/21/20 15:15 Sputum - Expectorated Sputum Sputum Culture - Preliminary 01/17/20 21:40 Blood Blood Culture - Final NO GROWTH AFTER 5 DAYS 01/17/20 21:40 Blood Blood Culture - Final NO GROWTH AFTER 5 DAYS - Constitutional mild distress - *Routine HEENT Exam Head: Present: normocephalic Eye: Present: PERRL ENT: Present: mucous membranes moist - *Routine Neck Exam Present: supple. Absent: lymphadenopathy - *Routine Respiratory Exam Present: rhonchi, diminished air movement - *Routine Cardiovascular Exam Present: RRR - *Routine Abdominal Exam Present: soft, normoactive bowel sounds. Absent: tenderness - *Routine Extremities Exam Present: full ROM, normal capillary refill. Absent: cyanosis, clubbing, edema - *Routine Skin Exam Present: warm. Absent: rash Comments: Redness to groin - *Routine Neurological Exam Present: alert, oriented X3 - Routine Psychiatric Exam Present: normal affect Assessment and Plan (1) Diabetes insipidus Current visit: Yes Status: Suspected Category: Medical Code(s): E23.2 - Diabetes insipidus (2) Atrial fibrillation with rapid ventricular response Current visit: Yes Status: Acute Category: Medical Code(s): I48.91 - Unspecified atrial fibrillation (3) BROCK (acute kidney injury) Current visit: Yes Status: Acute Category: Medical Code(s): N17.9 - Acute kidney failure, unspecified (4) HCAP (healthcare-associated pneumonia) Current visit: Yes Status: Acute Category: Medical Code(s): J18.9 - Pneumonia, unspecified organism (5) Severe sepsis with acute organ dysfunction Current visit: Yes Status: Acute Category: Medical Code(s): A41.9 - Sepsis, unspecified organism; R65.20 - Severe sepsis without septic shock (6) Septic shock Current visit: Yes Status: Acute Category: Medical Code(s): A41.9 - Sepsis, unspecified organism; R65.21 - Severe sepsis with septic shock (7) History of nephrectomy Current visit: Yes Status: Acute Category: Surgical Code(s): Z90.5 - Acq uired absence of kidney (8) History of traumatic brain injury Current visit: Yes Status: Chronic Category: Medical Code(s): Z87.820 - Personal history of traumatic brain injury - Assessment and plan all Dx Assessment and Plan for all problems:: Rounded with Dr. Schmitt all orders per Dr. Schmitt We will discuss with power of webbing tacker regarding diet and what the request order.
[2020-01-23 11:16] LABS: Lymphocytes % 11 % (10-50); Monocytes % 4 % (2-9); Myelocytes % 1 (0-1); Neutrophils % 79 % (42-76); Total Cells Counted 100
--- NOTE | 2020-01-23 17:48 | Cardiology Report ---
APPROVED REPORT Bilateral Lower Extremity Venous Study for DVT. Product Test Specialist: Suki Liu RVT Indications Lower Extremity Edema: Right History of Smoking Edema,Pt has a traumatic brain injury Risk Factors Immobility Vein Imaging CFV (R): compressive, spontaneous, phasic, augmentation FEM (R): compressive, spontaneous, phasic, augmentation POP (R): compressive, spontaneous, phasic, augmentation PTV (R): Compressible GSV (R): Compressible Peroneals (R):Compressible GAS (R): Compressible CFV (L): compressive, spontaneous, phasic, augmentation FEM (L): compressive, spontaneous, phasic, augmentation POP (L): compressive, spontaneous, phasic, augmentation PTV (L): Compressible GSV (L): Compressible Peroneals (L):Compressible GAS (L): Partially Compressible Findings Study suggests no evidence of DVT in the bilateral lower extremities. Study suggests no evidence of SVT in the bilateral lower extremities. Conclusion No evidence of DVT or superficial thrombophlebitis in the veins scanned of the right lower extremity. No evidence of DVT or superficial thrombophlebitis in the veins scanned of the left lower extremity. Electronically signed by : Prasanth Johnston MD 01/23/2020 17:48:03
[2020-01-24 08:35] LABS: Basophils # 0.1 K/mm3 (0-0.2); Basophils % 0.5 % (0.1-2.0); Eosinophils # 0.2 K/mm3 (0.0-0.4); Eosinophils % 0.7 % (0.1-12.0); Hematocrit 34.4 % (42.0-52.0); Hemoglobin 10.7 g/dL (14.1-18.0); Lymphocytes # 0.9 K/mm3 (0.7-4.5); Lymphocytes % 3.5 % (10-50); Mean Corpuscular HGB Conc 31.2 g/dL (31.8-35.4); Mean Corpuscular Volume 88.4 fl (80-94); Mean Platelet Volume 9.4 fl (7.4-10.4); Neutrophils # 22.8 K/mm3 (1.8-7.8); Neutrophils % 91.3 % (37.0-80.0); Platelet Count 83 K/mm3 (142-424); Red Blood Count 3.89 M/mm3 (4.60-6.20); Red Cell Distribution Width 17.8 % (11.5-17.5)
[2020-01-24 08:43] LABS: Anion Gap 12.3 mEq/L (5-15)
--- NOTE | 2020-01-24 09:03 | Progress Note ---
Internal Medicine - PN: Subj *Date: 01/24/20 *Time: 08:59 Interval history: Patient's glucose 27 A D50 given. I tried to feed patient he took 1 bite refused to try anything else. Patient sitting up in bed grabbing at sheets. Exam Vital signs and Labs for Last 24 Hours: Temp Pulse Resp BP Pulse Ox 97.5 F L 79 20 113/71 92 L 01/24/20 07:38 01/24/20 06:36 01/24/20 06:00 01/24/20 06:00 01/24/20 06:36 Laboratory Results - last 24 hr 01/21/20 07:35: Serum Osmolality 317 H 01/23/20 05:45: Total Counted 100, Neutrophils % (Manual) 79 H, Lymphocytes % (Manual) 11, Monocytes % (Manual) 4, Metamyelocytes % 5.0 H, Myelocytes % 1, Platelet Estimate Moderate decrease, Poikilocytosis 1+, Acanthocytes (Spur) 1+ 01/24/20 08:20: WBC 25.0 H*, RBC 3.89 L, Hgb 10.7 L, Hct 34.4 L, MCV 88.4, MCH 27.5, MCHC 31.2 L, RDW 17.8 H, Plt Count 83 L, MPV 9.4, Neut % (Auto) 91.3 H, Lymph % (Auto) 3.5 L, [place] % (Auto) 4.0, Eos % (Auto) 0.7, Baso % (Auto) 0.5, Neut # (Auto) 22.8 H, Lymph # (Auto) 0.9, [place] # (Auto) 1.0, Eos # (Auto) 0.2, Baso # (Auto) 0.1 01/24/20 08:20: Sodium 146 H, Potassium 3.3 L, Chloride 118 H, Carbon Dioxide 19 L, Anion Gap 12.3, BUN 37 H, Creatinine 1.00, Estimated Creat Clear 99, Estimated GFR 77, Est GFR ( Amer) 93, Glucose 27 L*, Calcium 8.0 L I & O for Last 24 hours: Intake & Output 01/21/20 01/22/20 01/23/20 01/24/20 11:59 11:59 11:59 11:59 Intake Total 3585 / 3585 3023.667 / 3023.667 5696 / 5696 1308 / 1308 Output Total 475 / 475 3650 / 3650 Balance 3110 / 3110 -626.333 / -092.796 9668 / 5696 1308 / 1308 Weight 180 lb 3 oz 184 lb 5 oz 188 lb 9 oz 190 lb 4 oz Microbiology Reports for the Last 24 Hours: Microbiology 01/21/20 15:15 Sputum - Expectorated Sputum Gram Stain - Final 01/21/20 15:15 Sputum - Expectorated Sputum Sputum Culture - Preliminary - Constitutional no acute distress, chronically ill appearing - *Routine HEENT Exam Head: Present: normocephalic Eye: Present: PERRL ENT: Present: mucous membranes moist - *Routine Neck Exam Present: supple. Absent: lymphadenopathy - *Routine Respiratory Exam Present: rhonchi, diminished air movement - *Routine Cardiovascular Exam Present: RRR - *Routine Abdominal Exam Present: soft, normoactive bowel sounds. Absent: tenderness - *Routine Extremities Exam Present: full ROM, normal capillary refill. Absent: cyanosis, clubbing, edema - *Routine Skin Exam Present: warm. Absent: rash Comments: Redness to groin area - *Routine Neurological Exam Present: alert, oriented X3 - Routine Psychiatric Exam Present: normal affect Assessment and Plan (1) Diabetes insipidus Current visit: Yes Status: Suspected Category: Medical Code(s): E23.2 - Diabetes insipidus (2) Atrial fibrillation with rapid ventricular response Current visit: Yes Status: Acute Category: Medical Code(s): I48.91 - Unspecified atrial fibrillation (3) BROCK (acute kidney injury) Current visit: Yes Status: Acute Category: Medical Code(s): N17.9 - Acute kidney failure, unspecified (4) HCAP (healthcare-associated pneumonia) Current visit: Yes Status: Acute Category: Medical Code(s): J18.9 - Pneumonia, unspecified organism (5) Severe sepsis with acute organ dysfunction Current visit: Yes Status: Acute Category: Medical Code(s): A41.9 - Sepsis, unspecified organism; R65.20 - Severe sepsis without septic shock (6) Septic shock Current visit: Yes Status: Acute Category: Medical Code(s): A41.9 - Sepsis, unspecified organism; R65.21 - Severe sepsis with septic shock (7) History of nephrectomy Current visit: Yes Status: Acute Category: Surgical Code(s): Z90.5 - Acquired absence of kidney (8) History of traumatic brain injury Current visit: Yes Status: Chronic Category: Medical Code(s): Z87.820 - Personal history of traumatic brain injury - Assessment and plan all Dx Assessment and Plan for all problems:: Rounded with Dr. Schmitt all orders per Dr. Schmitt Patient is unable or unwilling to take oral intake and due to his aspiration he needs to be on thickened liquids and thickened food. Discussed with sister yesterday on options to place feeding tube to help with hydration and nutrition or let patient eat what he wants or drink what he wants and go with hospice knowing the risk of aspiration and pneumonia. Family is at bedside per staff and were going to meet and get back with us on what they have decided. Culture still pending
[2020-01-24 10:20] LABS: Lymphocytes % 12 % (10-50); Monocytes % 7 % (2-9); Neutrophils % 76 % (42-76); Total Cells Counted 100
[2020-01-24 10:21] LABS: RBC Morphology Normal
--- NOTE | 2020-01-24 10:57 | Progress Note ---
Subjective Date: 01/24/20 Time: 10:53 Principal diagnosis: A. fib Interval history: 59 yo WM in bed. Essentially non-communicative. Less alert today with slightly more difficulty breathing noted. Pt refusing food due to need for thickening of liquids to prevent aspiration. Family considering hospice. Exam Vital signs and Labs for Last 24 Hours: Temp Pulse Resp BP Pulse Ox 97.5 F L 88 22 108/48 L 91 L 01/24/20 07:38 01/24/20 08:00 01/24/20 08:00 01/24/20 08:00 01/24/20 08:00 Laboratory Results - last 24 hr 01/21/20 07:35: Serum Osmolality 317 H 01/21/20 14:50: Urine Osmolality 414 01/23/20 05:45: Total Counted 100, Neutrophils % (Manual) 79 H, Lymphocytes % (Manual) 11, Monocytes % (Manual) 4, Metamyelocytes % 5.0 H, Myelocytes % 1, Platelet Estimate Moderate decrease, Poikilocytosis 1+, Acanthocytes (Spur) 1+ 01/24/20 08:20: WBC 25.0 H*, RBC 3.89 L, Hgb 10.7 L, Hct 34.4 L, MCV 88.4, MCH 27.5, MCHC 31.2 L, RDW 17.8 H, Plt Count 83 L, MPV 9.4, Neut % (Auto) 91.3 H, Lymph % (Auto) 3.5 L, [place] % (Auto) 4.0, Eos % (Auto) 0.7, Baso % (Auto) 0.5, Neut # (Auto) 22.8 H, Lymph # (Auto) 0.9, [place] # (Auto) 1.0, Eos # (Auto) 0.2, Baso # (Auto) 0.1, Total Counted 100, Neutrophils % (Manual) 76, Band Neutrophils % 4.0, Lymphocytes % (Manual) 12, Monocytes % (Manual) 7, Metamyelocytes % 1.0, Platelet Estimate Marked decrease, RBC Morphology Normal 01/24/20 08:20: Sodium 146 H, Potassium 3.3 L, Chloride 118 H, Carbon Dioxide 19 L, Anion Gap 12.3, BUN 37 H, Creatinine 1.00, Estimated Creat Clear 99, Estimated GFR 77, Est GFR ( Amer) 93, Glucose 27 L*, Calcium 8.0 L 01/24/20 09:20: POC Glucose 66 L 01/24/20 09:25: Random Glucose 68 L I & O for Last 24 hours: Intake & Output 01/21/20 01/22/20 01/23/20 01/24/20 11:59 11:59 11:59 11:59 Intake Total 3585 / 3585 3023.667 / 3023.667 5696 / 5696 1308 / 1308 Output Total 475 / 475 3650 / 3650 Balance 3110 / 3110 -626.333 / -023.997 4501 / 5696 1308 / 1308 Weight 180 lb 3 oz 184 lb 5 oz 188 lb 9 oz 190 lb 4 oz Microbiology Reports for the Last 24 Hours: Microbiology 01/21/20 15:15 Sputum - Expectorated Sputum Gram Stain - Final 01/21/20 15:15 Sputum - Expectorated Sputum Sputum Culture - Preliminary Gram Positive Cocci - *Routine HEENT Exam Head: Present: normocephalic Comments: Pt non-cooperative with exam - *Routine Respiratory Exam Present: CTA bilaterally. Absent: accessory muscle use, rales, rhonchi, wheezes - *Routine Cardiovascular Exam Present: RRR. Absent: murmur, gallop, rubs - *Routine Extremities Exam Present: edema. Absent: calf tenderness - *Routine Neurological Exam Present: alert, moving all extremities Progress Note: A&P (1) Diabetes insipidus Status: Suspected Current Visit: Yes (2) Atrial fibrillation with rapid ventricular response Status: Acute Current Visit: Yes (3) BROCK (acute kidney injury) Status: Acute Current Visit: Yes (4) HCAP (healthcare-associated pneumonia) Status: Acute Current Visit: Yes (5) Severe sepsis with acute organ dysfunction Status: Acute Current Visit: Yes (6) Septic shock Status: Acute Current Visit: Yes (7) History of nephrectomy Status: Acute Current Visit: Yes (8) History of traumatic brain injury Status: Chronic Current Visit: Yes Assessment and Plan for All Diagnoses:: 1. Recurrent pneumonia felt secondary to aspiration. Family considering hospice as patient is noncompliant with dietary modifications. Patient does not want tube feeding. 2. History of brain trauma and injury with subsequent mental impairment 3. Atrial fibrillation, maintaining sinus rhythm with propranolol therapy. Not a candidate for anticoagulation other than ASA 4. Suspected diabetes insipidus, recommend starting desmopressin nasal spray 10 mcg/spray, 2 sprays/day. Hypernatremia in setting of Serum osmolality 317 (elevated) with urine osmolality 414 (WNL but obtained after lasix given). 5. History of nephrectomy. Creatinine normal. 6. Mild anemia, stable 7. Thrombocytopenia, stable at around 70-80K at this time. 8. HLD, on statin therapy
[2020-01-25 07:28] LABS: Basophils # 0.3 K/mm3 (0-0.2); Basophils % 0.8 % (0.1-2.0); Eosinophils # 0.1 K/mm3 (0.0-0.4); Eosinophils % 0.4 % (0.1-12.0); Hematocrit 40.8 % (42.0-52.0); Lymphocytes # 0.9 K/mm3 (0.7-4.5); Lymphocytes % 2.7 % (10-50); Mean Corpuscular HGB Conc 30.9 g/dL (31.8-35.4); Mean Corpuscular Volume 88.7 fl (80-94); Mean Platelet Volume 8.9 fl (7.4-10.4); Monocytes # 1.8 K/mm3 (0.1-1.0); Monocytes % 5.5 % (1.7-9.3); Neutrophils # 29.7 K/mm3 (1.8-7.8); Neutrophils % 90.6 % (37.0-80.0); Platelet Count 113 K/mm3 (142-424); Red Cell Distribution Width 17.8 % (11.5-17.5); White Blood Count 32.8 K/mm3 (4.8-10.8)
[2020-01-25 07:53] LABS: Anion Gap 12.3 mEq/L (5-15); Calcium 8.5 mg/dl (8.4-10.2)
[2020-01-25 08:20] LABS: Hypochromasia 1+; Lymphocytes % 9 % (10-50); Monocytes % 4 % (2-9); Myelocytes % 2 (0-1); Neutrophils % 81 % (42-76); Nucleated Red Blood Cells 1; Total Cells Counted 100
--- NOTE | 2020-01-25 08:41 | Progress Note ---
Internal Medicine - PN: Subj *Date: 01/25/20 *Time: 08:38 Interval history: more alert but inc wbc and has low glu - on abx and still refused to eat - family wants no g tube but same diet and comfort care but wanted ivf and abx continued - Exam Vital signs and Labs for Last 24 Hours: Temp Pulse Resp BP Pulse Ox 97.7 F 88 20 114/67 93 L 01/25/20 07:41 01/25/20 07:41 01/25/20 07:41 01/25/20 07:41 01/25/20 07:41 Laboratory Results - last 24 hr 01/21/20 14:50: Urine Osmolality 414 01/24/20 08:20: WBC 25.0 H*, RBC 3.89 L, Hgb 10.7 L, Hct 34.4 L, MCV 88.4, MCH 27.5, MCHC 31.2 L, RDW 17.8 H, Plt Count 83 L, MPV 9.4, Neut % (Auto) 91.3 H, Lymph % (Auto) 3.5 L, [place] % (Auto) 4.0, Eos % (Auto) 0.7, Baso % (Auto) 0.5, Neut # (Auto) 22.8 H, Lymph # (Auto) 0.9, [place] # (Auto) 1.0, Eos # (Auto) 0.2, Baso # (Auto) 0.1, Total Counted 100, Neutrophils % (Manual) 76, Band Neutrophils % 4.0, Lymphocytes % (Manual) 12, Monocytes % (Manual) 7, Metamyelocytes % 1.0, Platelet Estimate Marked decrease, RBC Morphology Normal 01/24/20 08:20: Sodium 146 H, Potassium 3.3 L, Chloride 118 H, Carbon Dioxide 19 L, Anion Gap 12.3, BUN 37 H, Creatinine 1.00, Estimated Creat Clear 99, Estimated GFR 77, Est GFR ( Amer) 93, Glucose 27 L*, Calcium 8.0 L 01/24/20 09:20: POC Glucose 66 L 01/24/20 09:25: Random Glucose 68 L 01/25/20 03:55: Random Glucose 129 H 01/25/20 03:56: POC Glucose 86 01/25/20 05:29: POC Glucose 81 01/25/20 07:20: WBC 32.8 H* D, RBC 4.60, Hgb 13.0 L D, Hct 40.8 L, MCV 88.7, MCH 27.4, MCHC 30.9 L, RDW 17.8 H, Plt Count 113 L D, MPV 8.9, Neut % (Auto) 90.6 H, Lymph % (Auto) 2.7 L, [place] % (Auto) 5.5, Eos % (Auto) 0.4, Baso % (Auto) 0.8, Neut # (Auto) 29.7 H, Lymph # (Auto) 0.9, [place] # (Auto) 1.8 H, Eos # (Auto) 0.1, Baso # (Auto) 0.3 H, Total Counted 100, Neutrophils % (Manual) 81 H, Band Neutrophils % 2.0, Lymphocytes % (Manual) 9 L, Monocytes % (Manual) 4, Metamyelocytes % 2.0 H, Myelocytes % 2 H, Nucleated RBCs 1, Platelet Estimate Slight decrease, Hypochromasia 1+, Poikilocytosis 1+, Acanthocytes (Spur) 1+ 01/25/20 07:20: Sodium 148 H, Potassium 3.3 L, Chloride 117 H, Carbon Dioxide 22, Anion Gap 12.3, BUN 33 H, Creatinine 0.90, Estimated Creat Clear 111, Estimated GFR 87, Est GFR ( Amer) 105, Glucose 68 L D, Calcium 8.5 I & O for Last 24 hours: Intake & Output 01/22/20 01/23/20 01/24/20 01/25/20 11:59 11:59 11:59 11:59 Intake Total 3023.667 / 3023.667 5696 / 5696 1308 / 1308 2634 / 2634 Output Total 3650 / 3650 Balance -626.333 / -232.921 2915 / 5696 1308 / 1308 2634 / 2634 Weight 184 lb 5 oz 188 lb 9 oz 190 lb 4 oz 190 lb 4.002 oz Microbiology Reports for the Last 24 Hours: Microbiology 01/21/20 15:15 Sputum - Expectorated Sputum Gram Stain - Final 01/21/20 15:15 Sputum - Expectorated Sputum Sputum Culture - Final Staphylococcus intermedius - Constitutional no acute distress, chronically ill appearing - *Routine HEENT Exam Head: Present: normocephalic Eye: Present: EOMI, PERRL ENT: Present: mucous membranes dry - *Routine Neck Exam Absent: JVD - *Routine Respiratory Exam Present: decreased breath sounds, rhonchi - *Routine Cardiovascular Exam Present: RRR, murmur, S4 - *Routine Abdominal Exam Present: soft - *Routine Extremities Exam Absent: edema, calf tenderness - *Routine Skin Exam Present: intact - *Routine Neurological Exam Present: altered mental status - Routine Psychiatric Exam Present: unable to assess Assessment and Plan (1) Diabetes insipidus Current visit: Yes Status: Suspected Category: Medical Code(s): E23.2 - Diabetes insipidus (2) Atrial fibrillation with rapid ventricular response Current visit: Yes Status: Acute Category: Medical Code(s): I48.91 - Unspecified atrial fibrillation (3) BROCK (acute kidney injury) Current visit: Yes Status: Acute Category: Medical Code(s): N17.9 - Acute kidney failure, unspecified (4) HCAP (healthcare-associated pneumonia) Current visit: Yes Status: Acute Category: Medical Code(s): J18.9 - Pneumonia, unspecified organism (5) Severe sepsis with acute organ dysfunction Current visit: Yes Status: Acute Category: Medical Code(s): A41.9 - Sepsis, unspecified organism; R65.20 - Severe sepsis without septic shock (6) Septic shock Current visit: Yes Status: Acute Category: Medical Code(s): A41.9 - S epsis, unspecified organism; R65.21 - Severe sepsis with septic shock (7) History of nephrectomy Current visit: Yes Status: Acute Category: Surgical Code(s): Z90.5 - Acquired absence of kidney (8) History of traumatic brain injury Current visit: Yes Status: Chronic Category: Medical Code(s): Z87.820 - Personal history of traumatic brain injury (9) Staphylococcal pneumonia Current visit: Yes Status: Acute Category: Medical Code(s): J15.20 - Pneumonia due to staphylococcus, unspecified (10) C. difficile colitis Current visit: Yes Status: Acute Category: Medical Code(s): A04.72 - Enterocolitis due to Clostridium difficile, not specified as recurrent
--- NOTE | 2020-01-25 14:43 | Pharmacy Consult Notes ---
- Pharmacy Consult Date: 01/25/20 Time: 14:42 Referring provider: DR. TAYLOR Reason for Consult:: VANCOMYCIN DOSING Allergies and ADEs:: Allergies Allergy/AdvReac Type Severity Reaction Status Date / Time bee pollen Allergy Verified 01/17/20 21:51 Home Medications:: Home Medications Medication Instructions Recorded Confirmed Type Acetaminophen 1,000 mg PO Q6HP PRN 11/10/19 01/18/20 History Atorvastatin Calcium [Atorvastatin 40 mg PO HS 11/10/19 01/17/20 History 40mg Tab] Cholecalciferol (Vitamin D3) 1,000 unit PO DAILY 11/10/19 01/17/20 History [Vitamin D3 1,000 Unit Cap] Divalproex Sodium [Depakote] 500 mg PO TID 11/10/19 01/17/20 History Gabapentin [Gabapentin 100mg Cap] 100 mg PO TID 11/10/19 01/17/20 History Loratadine [Claritin] 10 mg PO DAILY 11/10/19 01/17/20 History Melatonin [Melatin] 6 mg PO HS 11/10/19 01/17/20 History Propranolol HCl [Inderal 20mg 20 mg PO TID 11/10/19 01/17/20 History tablet] Sertraline HCl [Zoloft] 100 mg PO DAILY 11/10/19 01/17/20 History raNITIdine HCL [Ranitidine HCl] 300 mg PO HS 11/10/19 01/17/20 History buPROPion HCL [Wellbutrin 75mg 75 mg PO DAILY 12/29/19 01/17/20 History Tablet] Fluticasone/Salmeterol [Advair 1 puff IH BID 01/17/20 01/18/20 History 250/50mcg Diskus] levoFLOXacin [Levaquin 500mg 500 mg PO DAILY 01/17/20 01/17/20 History tab] Quetiapine Fumarate [Seroquel 50 100 mg PO HS 01/18/20 01/18/20 History mg Tablets] Height: 1.8 m Weight: 86.296 kg Laboratory Results:: Laboratory Results - last 24 hr 01/25/20 03:55: Random Glucose 129 H 01/25/20 03:56: POC Glucose 86 01/25/20 05:29: POC Glucose 81 01/25/20 07:20: WBC 32.8 H* D, RBC 4.60, Hgb 13.0 L D, Hct 40.8 L, MCV 88.7, MCH 27.4, MCHC 30.9 L, RDW 17.8 H, Plt Count 113 L D, MPV 8.9, Neut % (Auto) 90.6 H, Lymph % (Auto) 2.7 L, [place] % (Auto) 5.5, Eos % (Auto) 0.4, Baso % (Auto) 0.8, Neut # (Auto) 29.7 H, Lymph # (Auto) 0.9, [place] # (Auto) 1.8 H, Eos # (Auto) 0.1, Baso # (Auto) 0.3 H, Total Counted 100, Neutrophils % (Manual) 81 H, Band Neutrophils % 2.0, Lymphocytes % (Manual) 9 L, Monocytes % (Manual) 4, Metamyelocytes % 2.0 H, Myelocytes % 2 H, Nucleated RBCs 1, Platelet Estimate Slight decrease, Hypochromasia 1+, Poikilocytosis 1+, Acanthocytes (Spur) 1+ 01/25/20 07:20: Sodium 148 H, Potassium 3.3 L, Chloride 117 H, Carbon Dioxide 22, Anion Gap 12.3, BUN 33 H, Creatinine 0.90, Estimated Creat Clear 111, Estimated GFR 87, Est GFR ( Amer) 105, Glucose 68 L D, Calcium 8.5 01/25/20 11:07: POC Glucose 135 H Medical History: Reports:: Hyperlipidemia Denies:: Diabetes Mellitus Type 1, Diabetes Mellitus Type 2 Assessment and Plan (1) Diabetes insipidus Current visit: Yes Status: Suspected Category: Medical Code(s): E23.2 - Diabetes insipidus (2) Atrial fibrillation with rapid ventricular response Current visit: Yes Status: Acute Category: Medical Code(s): I48.91 - Unspecified atrial fibrillation (3) BROCK (acute kidney injury) Current visit: Yes Status: Acute Category: Medical Code(s): N17.9 - Acute kidney failure, unspecified (4) HCAP (healthcare-associated pneumonia) Current visit: Yes Status: Acute Category: Medical Code(s): J18.9 - Pneumonia, unspecified organism (5) Severe sepsis with acute organ dysfunction Current visit: Yes Status: Acute Category: Medical Code(s): A41.9 - Seps is, unspecified organism; R65.20 - Severe sepsis without septic shock (6) Septic shock Current visit: Yes Status: Acute Category: Medical Code(s): A41.9 - Sepsis, unspecified organism; R65.21 - Severe sepsis with septic shock (7) History of nephrectomy Current visit: Yes Status: Acute Category: Surgical Code(s): Z90.5 - Acquired absence of kidney (8) History of traumatic brain injury Current visit: Yes Status: Chronic Category: Medical Code(s): Z87.820 - Personal history of traumatic brain injury (9) Staphylococcal pneumonia Current visit: Yes Status: Acute Category: Medical Code(s): J15.20 - Pneumonia due to staphylococcus, unspecified (10) C. difficile colitis Current visit: Yes Status: Acute Category: Medical Code(s): A04.72 - Enterocolitis due to Clostridium difficile, not specified as recurrent - Assessment and plan all Dx Assessment and Plan for all problems:: BASED ON PATIENT FACTORS, RECOMMEND VANCOMYCIN 1750 MG IV ONCE, FOLLOWED BY VANCOMYCIN 1500 MG IV Q12H. PHARMACY WILL FOLLOW DAILY AND ADJUST APPROPRIATE.
[2020-01-26 05:47] LABS: Basophils # 0.1 K/mm3 (0-0.2); Basophils % 0.5 % (0.1-2.0); Eosinophils # 0.2 K/mm3 (0.0-0.4); Eosinophils % 0.8 % (0.1-12.0); Hematocrit 32.5 % (42.0-52.0); Lymphocytes # 0.8 K/mm3 (0.7-4.5); Mean Corpuscular HGB Conc 31.1 g/dL (31.8-35.4); Mean Corpuscular Volume 89.2 fl (80-94); Mean Platelet Volume 10.3 fl (7.4-10.4); Monocytes # 2.4 K/mm3 (0.1-1.0); Monocytes % 9.2 % (1.7-9.3); Neutrophils # 22.6 K/mm3 (1.8-7.8); Neutrophils % 86.5 % (37.0-80.0); Platelet Count 93 K/mm3 (142-424); Red Blood Count 3.64 M/mm3 (4.60-6.20); Red Cell Distribution Width 18.2 % (11.5-17.5)
[2020-01-26 05:51] LABS: Hemoglobin 10.1 g/dL (14.1-18.0); White Blood Count 26.1 K/mm3 (4.8-10.8)
[2020-01-26 06:12] LABS: Albumin Level 1.8 g/dl (3.5-5.0); Albumin/Globulin Ratio 0.6 (1.1-1.8); Anion Gap 10.7 mEq/L (5-15); Bilirubin,Total 0.4 mg/dl (0.2-1.3); Calcium 7.7 mg/dl (8.4-10.2); Globulin 2.8 g/dL (1.3-3.2); Total Protein,Serum 4.6 g/dl (6.3-8.2)
[2020-01-26 06:23] LABS: Lymphocytes % 8 % (10-50); Neutrophils % 84 % (42-76); Total Cells Counted 100
[2020-01-26 06:24] LABS: Hypochromasia 1+; Rouleaux 1+
--- NOTE | 2020-01-26 08:50 | Progress Note ---
Internal Medicine - PN: Subj *Date: 01/27/20 *Time: 07:28 Interval history: more alert on vapotherm - wbc dec -still with dec po intake Exam Vital signs and Labs for Last 24 Hours: Temp Pulse Resp BP Pulse Ox 97.9 F 85 28 H 132/62 98 01/26/20 08:00 01/26/20 08:00 01/26/20 08:00 01/26/20 08:00 01/26/20 08:00 Laboratory Results - last 24 hr 01/25/20 11:07: POC Glucose 135 H 01/25/20 15:27: POC Glucose 106 01/26/20 04:04: POC Glucose 72 01/26/20 05:15: WBC 26.1 H*, RBC 3.64 L, Hgb 10.1 L D, Hct 32.5 L, MCV 89.2, MCH 27.7, MCHC 31.1 L, RDW 18.2 H, Plt Count 93 L, MPV 10.3, Neut % (Auto) 86.5 H, Lymph % (Auto) 3.0 L, [place] % (Auto) 9.2, Eos % (Auto) 0.8, Baso % (Auto) 0.5, Neut # (Auto) 22.6 H, Lymph # (Auto) 0.8, [place] # (Auto) 2.4 H, Eos # (Auto) 0.2, Baso # (Auto) 0.1, Total Counted 100, Neutrophils % (Manual) 84 H, Band Neutrophils % 8.0, Lymphocytes % (Manual) 8 L, Platelet Estimate Slight decrease, Hypochromasia 1+, Rouleaux 1+ 01/26/20 05:15: Sodium 146 H, Potassium 3.7, Chloride 123 H, Carbon Dioxide 16 L D, Anion Gap 10.7, BUN 30 H, Creatinine 0.70 D, Estimated Creat Clear 143, Estimated GFR 116, Est GFR ( Amer) 141 D, Glucose 76, Calcium 7.7 L, Total Bilirubin 0.4, AST 48, ALT 10 L, Alkaline Phosphatase 58, Total Protein 4.6 L, Albumin 1.8 L, Globulin 2.8, Albumin/Globulin Ratio 0.6 L I & O for Last 24 hours: Intake & Output 01/23/20 01/24/20 01/25/20 01/26/20 11:59 11:59 11:59 11:59 Intake Total 5696 / 5696 1308 / 1308 2734 / 2734 2567 / 2567 Balance 5696 / 5696 1308 / 1308 2734 / 2734 2567 / 2567 Weight 188 lb 9 oz 190 lb 4 oz 190 lb 4.002 oz 191 lb 7 oz Microbiology Reports for the Last 24 Hours: Microbiology 01/21/20 15:15 Sputum - Expectorated Sputum Gram Stain - Final 01/21/20 15:15 Sputum - Expectorated Sputum Sputum Culture - Final Staphylococcus intermedius - Constitutional no acute distress - *Routine HEENT Exam Head: Present: normocephalic Eye: Present: EOMI, PERRL ENT: Present: mucous membranes dry - *Routine Neck Exam Present: supple - *Routine Respiratory Exam Present: decreased breath sounds - *Routine Cardiovascular Exam Present: RRR, murmur - *Routine Abdominal Exam Present: soft - *Routine Extremities Exam Absent: calf tenderness - *Routine Skin Exam Comments: reddness scrotal - *Routine Neurological Exam Present: alert, CN II-XII intact - Routine Psychiatric Exam Present: unable to assess Assessment and Plan (1) Diabetes insipidus Current visit: Yes Status: Suspected Category: Medical Code(s): E23.2 - Diabetes insipidus (2) Atrial fibrillation with rapid ventricular response Current visit: Yes Status: Acute Category: Medical Code(s): I48.91 - Unspecified atrial fibrillation (3) BROCK (acute kidney injury) Current visit: Yes Status: Acute Category: Medical Code(s): N17.9 - Acute kidney failure, unspecified (4) HCAP (healthcare-associated pneumonia) Current visit: Yes Status: Acute Category: Medical Code(s): J18.9 - Pneumonia, unspecified organism (5) Severe sepsis with acute organ dysfunction Current visit: Yes Status: Acute Category: Medical Code(s): A41.9 - Sepsis, unspecified organism; R65.20 - Severe sepsis without septic shock (6) Septic shock Current visit: Yes Status: Acute Category: Medical Code(s): A41.9 - Sepsis, unspecified organism; R65.21 - Severe sepsis with septic shock (7) History of nephrectomy Current visit: Yes Status: Acute Category: Surgical Code(s): Z90.5 - Acquired absence of kidney (8) History of traumatic brain injury Current visit: Yes Status: Chronic Category: Medical Code(s): Z87.820 - Personal history of traumatic brain injury (9) Staphylococcal pneumonia Current visit: Yes Status: Acute Category: Medical Code(s): J15.20 - Pneumonia due to staphylococcus, unspecified (10) C. difficile colitis Current visit: Yes Status: Acute Category: Medical Code(s): A04.72 - Enterocolitis due to Clostridium difficile, not specified as recurrent
--- NOTE | 2020-01-26 13:54 | Pharmacy Consult Notes ---
- Pharmacy Consult Date: 01/26/20 Time: 13:52 Referring provider: DR. TAYLOR Reason for Consult:: VANCOMYCIN TROUGH LEVEL Allergies and ADEs:: Allergies Allergy/AdvReac Type Severity Reaction Status Date / Time bee pollen Allergy Verified 01/17/20 21:51 Home Medications:: Home Medications Medication Instructions Recorded Confirmed Type Acetaminophen 1,000 mg PO Q6HP PRN 11/10/19 01/18/20 History Atorvastatin Calcium [Atorvastatin 40 mg PO HS 11/10/19 01/17/20 History 40mg Tab] Cholecalciferol (Vitamin D3) 1,000 unit PO DAILY 11/10/19 01/17/20 History [Vitamin D3 1,000 Unit Cap] Divalproex Sodium [Depakote] 500 mg PO TID 11/10/19 01/17/20 History Gabapentin [Gabapentin 100mg Cap] 100 mg PO TID 11/10/19 01/17/20 History Loratadine [Claritin] 10 mg PO DAILY 11/10/19 01/17/20 History Melatonin [Melatin] 6 mg PO HS 11/10/19 01/17/20 History Propranolol HCl [Inderal 20mg 20 mg PO TID 11/10/19 01/17/20 History tablet] Sertraline HCl [Zoloft] 100 mg PO DAILY 11/10/19 01/17/20 History raNITIdine HCL [Ranitidine HCl] 300 mg PO HS 11/10/19 01/17/20 History buPROPion HCL [Wellbutrin 75mg 75 mg PO DAILY 12/29/19 01/17/20 History Tablet] Fluticasone/Salmeterol [Advair 1 puff IH BID 01/17/20 01/18/20 History 250/50mcg Diskus] levoFLOXacin [Levaquin 500mg 500 mg PO DAILY 01/17/20 01/17/20 History tab] Quetiapine Fumarate [Seroquel 50 100 mg PO HS 01/18/20 01/18/20 History mg Tablets] Height: 1.8 m Weight: 86.835 kg Laboratory Results:: Laboratory Results - last 24 hr 01/25/20 15:27: POC Glucose 106 01/26/20 04:04: POC Glucose 72 01/26/20 05:15: WBC 26.1 H*, RBC 3.64 L, Hgb 10.1 L D, Hct 32.5 L, MCV 89.2, MCH 27.7, MCHC 31.1 L, RDW 18.2 H, Plt Count 93 L, MPV 10.3, Neut % (Auto) 86.5 H, Lymph % (Auto) 3.0 L, [place] % (Auto) 9.2, Eos % (Auto) 0.8, Baso % (Auto) 0.5, [place] # (Auto) 22.6 H, Lymph # (Auto) 0.8, [place] # (Auto) 2.4 H, Eos # (Auto) 0.2, Baso # (Auto) 0.1, Total Counted 100, Neutrophils % (Manual) 84 H, Band Neutrophils % 8.0, Lymphocytes % (Manual) 8 L, Platelet Estimate Slight decrease, Hypochromasia 1+, Rouleaux 1+ 01/26/20 05:15: Sodium 146 H, Potassium 3.7, Chloride 123 H, Carbon Dioxide 16 L D, Anion Gap 10.7, BUN 30 H, Creatinine 0.70 D, Estimated Creat Clear 143, Estimated GFR 116, Est GFR ( Amer) 141 D, Glucose 76, Calcium 7.7 L, Total Bilirubin 0.4, AST 48, ALT 10 L, Alkaline Phosphatase 58, Total Protein 4.6 L, Albumin 1.8 L, Globulin 2.8, Albumin/Globulin Ratio 0.6 L 01/26/20 13:22: Vancomycin Trough 19.9 H Medical History: Reports:: Hyperlipidemia Denies:: Diabetes Mellitus Type 1, Diabetes Mellitus Type 2 Assessment and Plan (1) Diabetes insipidus Current visit: Yes Status: Suspected Category: Medical Code(s): E23.2 - Diabetes insipidus (2) Atrial fibrillation with rapid ventricular response Current visit: Yes Status: Acute Category: Medical Code(s): I48.91 - Unspecified atrial fibrillation (3) BROCK (acute kidney injury) Current visit: Yes Status: Acute Category: Medical Code(s): N17.9 - Acute kidney failure, unspecified (4) HCAP (healthcare-associated pneumonia) Current visit: Yes Status: Acute Category: Medical Code(s): J18.9 - Pneumonia, unspecified organism (5) Severe sepsis with acute organ dysfunction Current visit: Yes Status: Acute Category: Medical Code(s): A41.9 - Sepsis, unspecified organism; R65.20 - Severe sepsis without septic shock (6) Septic shock Current visit: Yes Status: Acute Category: Medical Code(s): A41.9 - Sepsis, unspecified organism; R65.21 - Severe sepsis with septic shock (7) History of nephrectomy Current visit: Yes Status: Acute Category: Surgical Code(s): Z90.5 - Acquired absence of kidney (8) History of traumatic brain injury Current visit: Yes Status: Chronic Category: Medical Code(s): Z87.820 - Personal history of traumatic brain injury (9) Staphylococcal pneumonia Current visit: Yes Status: Acute Category: Medical Code(s): J15.20 - Pneumonia due to staphylococcus, unspecified (10) C. difficile colitis Current visit: Yes Status: Acute Category: Medical Code(s): A04.72 - Enterocolitis due to Clostridium difficile, not specified as recurrent - Assessment and plan all Dx Assessment and Plan for all problems:: BASED ON VANCOMYCIN TROUGH LEVEL AND PATIENT FACTORS, RECOMMEND EXTENDING THE INTERVAL TO VANCOMYCIN 1500 MG IV Q18H. PHARMACY WILL CONTINUE TO MONITOR DAILY AND ADJUST APPROPRIATE.
--- NOTE | 2020-01-27 08:52 | Progress Note ---
Internal Medicine - PN: Subj *Date: 01/27/20 *Time: 08:49 Interval history: Patient sitting up in bed this morning. Dr. Schmitt spoke with Sister Fern and she would like patient to be placed back on a regular diet and regular fluids with the understanding it patient is high risk for aspiration. Consult pulmonary. Will discuss with hospice. Sister would like patient to be comfort care and no feeding tubes. Will repeat chest x-ray Exam Vital signs and Labs for Last 24 Hours: Temp Pulse Resp BP Pulse Ox 99.7 F H 88 30 H 149/75 H 91 L 01/27/20 04:00 01/27/20 06:25 01/27/20 04:00 01/27/20 04:00 01/27/20 06:25 Laboratory Results - last 24 hr 01/26/20 13:22: Vancomycin Trough 19.9 H I & O for Last 24 hours: Intake & Output 01/24/20 01/25/20 01/26/20 01/27/20 11:59 11:59 11:59 11:59 Intake Total 1308 / 1308 2734 / 2734 2767 / 2767 1243 / 1243 Balance 1308 / 1308 2734 / 2734 2767 / 2767 1243 / 1243 Weight 190 lb 4 oz 190 lb 4.002 oz 191 lb 7 oz 186 lb 2 oz Microbiology Reports for the Last 24 Hours: Microbiology 01/24/20 09:25 Blood Blood Culture - Preliminary NO GROWTH AFTER 48 HOURS 01/24/20 09:00 Blood Blood Culture - Preliminary NO GROWTH AFTER 48 HOURS - *Routine HEENT Exam Head: Present: normocephalic Eye: Present: PERRL ENT: Present: mucous membranes moist - *Routine Neck Exam Present: supple. Absent: lymphadenopathy - *Routine Respiratory Exam Present: rhonchi, diminished air movement - *Routine Cardiovascular Exam Present: RRR - *Routine Abdominal Exam Present: soft, normoactive bowel sounds. Absent: tenderness - *Routine Extremities Exam Absent: cyanosis, clubbing, edema - *Routine Skin Exam Present: warm, wounds. Absent: rash Comments: Excoriation to groin - *Routine Neurological Exam Present: alert, oriented X3 - Routine Psychiatric Exam Present: unable to assess Assessment and Plan (1) Diabetes insipidus Current visit: Yes Status: Suspected Category: Medical Code(s): E23.2 - Diabetes insipidus (2) Atrial fibrillation with rapid ventricular response Current visit: Yes Status: Acute Category: Medical Code(s): I48.91 - Unspecified atrial fibrillation (3) BROCK (acute kidney injury) Current visit: Yes Status: Acute Category: Medical Code(s): N17.9 - Acute kidney failure, unspecified (4) HCAP (healthcare-associated pneumonia) Current visit: Yes Status: Acute Category: Medical Code(s): J18.9 - Pneumonia, unspecified organism (5) Severe sepsis with acute organ dysfunction Current visit: Yes Status: Acute Category: Medical Code(s): A41.9 - Sepsis, unspecified organism; R65.20 - Severe sepsis without septic shock (6) Septic shock Current visit: Yes Status: Acute Category: Medical Code(s): A41.9 - Sepsis, unspecified organism; R65.21 - Severe sepsis with septic shock (7) History of nephrectomy Current visit: Yes Status: Acute Category: Surgical Code(s): Z90.5 - Acquired absence of kidney (8) History of traumatic brain injury Current visit: Yes Status: Chronic Category: Medical Code(s): Z87.820 - Personal history of traumatic brain injury (9) Staphylococcal pneumonia Current visit: Yes Status: Acute Category: Medical Code(s): J15.20 - Pneumonia due to staphylococcus, unspecified (10) C. difficile colitis Current visit: Yes Status: Acute Category: Medical Code(s): A04.72 - Enterocolitis due to Clostridium difficile, not specified as recurrent - Assessment and plan all Dx Assessment and Plan for all problems:: Rounded with Dr. Schmitt all orders per Dr. Schmitt Pulmonary consult Repeat chest x-ray Placed on a regular diet with regular fluids with family no one aspiration risk Possible discharge tomorrow to care home
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
--- NOTE | 2020-01-28 11:30 | Pharmacy Consult Notes ---
- Pharmacy Consult Date: 01/28/20 Time: 11:29 Referring provider: DR. TAYLOR Reason for Consult:: VANCOMYCIN TROUGH LEVEL Allergies and ADEs:: Allergies Allergy/AdvReac Type Severity Reaction Status Date / Time bee pollen Allergy Verified 01/17/20 21:51 Home Medications:: Home Medications Medication Instructions Recorded Confirmed Type Acetaminophen 1,000 mg PO Q6HP PRN 11/10/19 01/18/20 History Atorvastatin Calcium [Atorvastatin 40 mg PO HS 11/10/19 01/17/20 History 40mg Tab] Cholecalciferol (Vitamin D3) 1,000 unit PO DAILY 11/10/19 01/17/20 History [Vitamin D3 1,000 Unit Cap] Divalproex Sodium [Depakote] 500 mg PO TID 11/10/19 01/17/20 History Gabapentin [Gabapentin 100mg Cap] 100 mg PO TID 11/10/19 01/17/20 History Loratadine [Claritin] 10 mg PO DAILY 11/10/19 01/17/20 History Melatonin [Melatin] 6 mg PO HS 11/10/19 01/17/20 History Propranolol HCl [Inderal 20mg 20 mg PO TID 11/10/19 01/17/20 History tablet] Sertraline HCl [Zoloft] 100 mg PO DAILY 11/10/19 01/17/20 History raNITIdine HCL [Ranitidine HCl] 300 mg PO HS 11/10/19 01/17/20 History buPROPion HCL [Wellbutrin 75mg 75 mg PO DAILY 12/29/19 01/17/20 History Tablet] Fluticasone/Salmeterol [Advair 1 puff IH BID 01/17/20 01/18/20 History 250/50mcg Diskus] Quetiapine Fumarate [Seroquel 50 100 mg PO HS 01/18/20 01/18/20 History mg Tablets] Minocycline HCl [Minocycline HCl 100 mg PO BID 4 Days #8 tab 01/28/20 Rx 100mg Tab*] metroNIDAZOLE [Flagyl 500mg 500 mg PO TID 4 Days #12 tab 01/28/20 Rx Tablet] Height: 1.8 m Weight: 83.25 kg Laboratory Results:: Laboratory Results - last 24 hr 01/28/20 04:08: POC Glucose 103 01/28/20 07:24: Vancomycin Trough 16.6 H Medical History: Reports:: Hyperlipidemia Denies:: Diabetes Mellitus Type 1, Diabetes Mellitus Type 2 Assessment and Plan (1) Diabetes insipidus Status: Suspected Category: Medical Code(s): E23.2 - Diabetes insipidus (2) Atrial fibrillation with rapid ventricular response Status: Acute Category: Medical Code(s): I48.91 - Unspecified atrial f ibrillation (3) BROCK (acute kidney injury) Status: Acute Category: Medical Code(s): N17.9 - Acute kidney failure, unspecified (4) HCAP (healthcare-associated pneumonia) Start date: 01/27/20 Status: Acute Category: Medical Code(s): J18.9 - Pneumonia, unspecified organism (5) Severe sepsis with acute organ dysfunction Status: Acute Category: Medical Code(s): A41.9 - Sepsis, unspecified organism; R65.20 - Severe sepsis without septic shock (6) Septic shock Status: Acute Category: Medical Code(s): A41.9 - Sepsis, unspecified organism; R65.21 - Severe sepsis with septic shock (7) History of nephrectomy Status: Acute Category: Surgical Code(s): Z90.5 - Acquired absence of kidney (8) History of traumatic brain injury Status: Chronic Category: Medical Code(s): Z87.820 - Personal history of traumatic brain injury (9) Staphylococcal pneumonia Status: Acute Category: Medical Code(s): J15.20 - Pneumonia due to staphylococcus, unspecified (10) C. difficile colitis Status: Acute Category: Medical Code(s): A04.72 - Enterocolitis due to Clostridium difficile, not specified as recurrent - Assessment and plan all Dx Assessment and Plan for all problems:: BASED ON VANCOMYCIN TROUGH LEVEL AND PATIENT FACTORS, RECOMMEND CONTINUING VANCOMYCIN 1500 MG IV Q18H. PATIENT IS BEING DISCHARGED BACK TO RETIREMENT TODAY.
== END 2020-01-28 10:59 | DRG 177 ==
LOC: ER 21:39 → 2ND 21:39 → OBSVTOIN 01-18 00:05 → 2ND 01-18 00:09
PROVIDERS: ADMIT Emergency Medicine; ATTEND Emergency Medicine
CPT/HCPCS: 36415; 70371; 71010; 71045; 71275; 80048; 80053; 80202; 81001; 82272; 82803; 82947; 82962; 83605; 83735; 83930; 83935; 84484; 85007; 85025; 87040; 87070; 87077; 87186; 87205; 87507; 92610; 92611; 93005; 93306; 93308; 93970; 94640; 94761; 96365; 96367; 96375; 99285; G0328; J0456; J0692; J1956; J3370; Q9967